=== PATIENT | female | born 1970 | race Caucasian/White ===

== ENCOUNTER 2022-07-31 10:24 | Day surgery (SDC) | payer BC, SELFPAY ==
[2022-07-31 10:49] VITALS: BMI 29.9
[2022-07-31 10:55] VITALS: BP 122/68; PULSE 82; RESP 16; TEMP 36.8; O2SAT 97
--- NOTE | 2022-07-31 11:27 | PC.NURSE ---
attempted two iv insertions with no success. applied ice pack to right hand.
--- NOTE | 2022-07-31 11:53 | P.CONAN_ITS ---
HPI - Anesthesia Eval Consult details Narrative: colonoscopy [facility] Past Medical History Medical History (Updated 07/31/22 @ 10:48 by Shelley Kendall RN) Patella fracture Family History Family history of problems with anesthesia: No Surgical History History of Problems with Anesthesia: No Social History Social History Household Members: None Alcohol intake: current Alcohol intake frequency: holidays/special occasions only Patient Tobacco Use Status: Never used Tobacco Use of substances other than those prescribed or required for medical reasons: No Are you DNR?: No Advance Directives: No Advance Directives Information Provided: Yes Recently lost weight without trying: No Nutrition Risks: No Nutritional Risk Meds Allergies Allergy/AdvReac Type Severity Reaction Status Date / Time No Known Allergies Allergy Verified 07/31/22 10:48 Home Medications Medication Instructions Recorded Confirmed Last Taken Type No Known Home Meds 07/31/22 07/31/22 Unknown History Exam Exam Date and Time: July 31, 2022 1153 Height,Weight and Vital Signs: Height 5 ft 5 in Weight 81.647 kg Last Vital Signs Temp 98.2 F 07/31/22 10:55 Pulse 82 07/31/22 10:55 Resp 16 07/31/22 10:55 BP 122/68 07/31/22 10:55 Pulse Ox 97 07/31/22 10:55 O2 Del Method 07/31/22 10:55 Airway Mallampati Class: II TM Dist: >3cm Neck ROM: Full Loose/Missing/Broken Teeth: No Heart: rrr Lungs: cta Assessment and Plan Final Anesthetic Review Family History of Problems with Anesthesia: No History of Problems with Anesthesia: No NPO: Yes ASA Class: III Final Preanesthetic Review: No Changes in Pt Med Stat, Meds/Allgs Chart Reviewed, Consent Obtained/Reviewed and Anes Risks/Benef Reviewed Patient Risk: Intermediate Procedure Risk: Low Assessment/Block/Sedation in SS: Assess/Block/Sedation-SS Anesthetic Plan Anesthetic Plan: MAC: Disposition: Standard PACU
--- NOTE | 2022-07-31 11:58 | MHC.SHP ---
Pre-Procedural Eval Section A Date of Service: 07/31/22 The patient is an INPATIENT: No The History & Physical has been completed within 30 days and I have reviewed it.: No Section B Chief Complaint: screening Details of Present Illness: Colon cancer screening, occasional postprandial loose stools and abdominal bloating. Relevant Family History (Specify if Yes): No Relevant Social History: None Present Medications: see Short Stay Collaborative assessment Medical History: No relevant PMH History of Previous Operations: No relevant previous surgery Allergies: Allergies Allergy/AdvReac Type Severity Reaction Status Date / Time No Known Allergies Allergy Verified 07/31/22 10:48 Review of Systems Sugical H&P ROS: Negative: Constitution, Cardiovascular, Respiratory and Gastrointestinal Exam Surgical H&P Exam: Normal: Heart, Normal: Lungs, Normal: Extremities and Normal: Abdomen Plan Diagnosis/Plan: Unchanged I have reviewed the history and physical and performed a pertinent physical examination on my patient. No changes have occurred unless specified. Time Spent With Patient Time: Total time managing care of this patient today ____ minutes.
--- NOTE | 2022-07-31 12:05 | P.OP_ITS ---
Operative Note Operative Note Date of Service: 07/31/22 Narrative: Pre-op diagnosis: Colon cancer screening, postprandial bloating and diarrhea Post-op diagnosis:?other (Diverticulosis, hemorrhoids) Surgeon: Luciano Tamayo MD Anesthesia:?MAC COLONOSCOPY TILL CECUM WITH BIOPSIES Consent: Indications for the procedure and potential complications of bleeding, perforation, reaction to medications and missed diagnosis were discussed with the patient and informed consent was obtained. Instrument: Olympus PCF H 190 L variable stiffness pediatric colonoscope Monitoring: Vital signs and clinical assessment, intermittent blood pressure monitoring, continuous EKG monitoring, Pulse oximetry and Carbon Dioxide monitoring were done throughout the procedure. Colon withdrawl time was 12 minutes. Procedure: The patient was placed in the left lateral decubitis position and pre-procedure medications were administered. After a digital rectal examination of the ano-rectum, the video colonoscope was inserted into the rectum and advanced through the colon to the cecum. The colonoscope was slowly withdrawn in a retrograde panoramic fashion and the colon mucosa was carefully examined including a retroflexed view of the rectum. Findings and interventions are described below. Procedure Difficulty: Without difficulty Findings: Terminal Ileum: Distal 6 cms was examined and appeared normal Cecum: Normal Ascending Colon: Normal Transverse Colon: Normal Descending Colon: Normal Sigmoid Colon: Moderate diverticulosis Rectum: Normal Ano-rectum: Small internal hemorrhoids Colon preparation: Excellent Impression and Post Procedure Diagnosis: Colonoscopy Findings: No polyps were detected. Random biopsies were obtained from right and left colon to check for microscopic colitis Moderate diverticulosis seen in the sigmoid colon Small hemorrhoids on retroflexed exam. Plan: Await pathology results Patient has an appointment on 08/14/22 in the GI Clinic with Nathaly Galaviz FNP- BC. Repeat Colonoscopy in 10 years if colon biopsies are normal. Above findings were reviewed with the patient and diverticulosis handouts was given in the discharge area
--- NOTE | 2022-07-31 12:05 | PM.OP ---
Brief Operative Note Date of Service: 07/31/22 Pre-op diagnosis: Colon cancer screening, postprandial bloating and diarrhea Post-op diagnosis: other (Diverticulosis, hemorrhoids) Procedure: COLONOSCOPY TILL CECUM WITH BIOPSIES Surgeon: Luciano Tamayo MD Anesthesia: MAC Was an [employer] Team Member used for this Procedure?: Yes [employer] Team Member: Sakina Marion Estimated blood loss (mL): 0 Pathology: other (A. random right colon bxs, R/O microscopic colitis B. random left colon bxs, R/O microscopic colitis) Condition: stable Disposition: PACU
[2022-07-31 12:47] VITALS: BP 87/36; PULSE 79; RESP 20; TEMP 36.6; O2SAT 98
[2022-07-31 13:02] VITALS: BP 104/60; PULSE 65; RESP 16; TEMP 36.2; O2SAT 97
== END 2022-07-31 14:03 | disposition home or self-care (01) ==
PROVIDERS: PCP Internal Medicine; Visit Provider Internal Medicine Gastroenterology
PROC: 0DJD8ZZ Inspection of Lower Intestinal Tract, Via Natural or Artificial Opening Endoscopic (ICD-10-PCS; CPT 45378; principal; 2022-07-31 11:30)
DX: Z12.11 Encounter for screening for malignant neoplasm of colon (principal); K57.30 Diverticulosis of large intestine without perforation or abscess without bleeding; K64.8 Other hemorrhoids; R14.0 Abdominal distension (gaseous)
CPT/HCPCS: 45380; 88305

== ENCOUNTER → 2022-08-14 15:41 | Outpatient (BNVA) | payer BC, SELFPAY | PROVIDERS: PCP Internal Medicine; Visit Provider Nurse Practitioner Family | DX: Z13.89 Encounter for screening for other disorder (principal) ==

== ENCOUNTER 2023-06-21 10:31 | Outpatient (REF) | payer OTHER, SELFPAY ==
[2023-06-21 12:14] LABS: Anion Gap 13 (12-20); Blood Urea Nitrogen 16 mg/dL (9-16); Calcium 9.3 mg/dL (8.4-10.2); Carbon Dioxide 27 mmol/L (22-29); Chloride 106 mmol/L (96-108); Cholesterol 199 mg/dL (<200); Estimated Glomerular Filt Rate > 60; Glucose Random 93 mg/dL (60-115); HDL Cholesterol 51 mg/dL (>40); LDL Cholesterol Calculated 125 mg/dL (<100); Potassium 4.1 mmol/L (3.3-5.1); Sodium 142 mmol/L (135-145); Triglycerides 116 mg/dL (<150)
== END 2023-06-21 10:32 | disposition home or self-care (01) ==
LOC: HO.HHCL 10:31
PROVIDERS: Visit Provider Internal Medicine
DX: Z00.00 Encounter for general adult medical examination without abnormal findings (principal); Z13.220 Encounter for screening for lipoid disorders
CPT/HCPCS: 36415; 80048; 80061

== ENCOUNTER 2024-09-05 13:25 | Outpatient (AMB) | payer MEDICAID, SELFPAY ==
--- NOTE | 2024-09-05 13:26 | MHC.OFFVIS ---
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 Patient reports right middle catching and locking every once and awhile especially after doing house work. Expresses right middle finger is sore and tender especially when attempting to squeeze or grasp. She is unable to pull finger in as much as other ones and when she extends the middle finger it bounces back. Denies numbness and tingling. 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 Patient reports right middle catching and locking every once and awhile especially after doing house work. Expresses right middle finger is sore and tender especially when attempting to squeeze or grasp. She is unable to pull finger in as much as other ones and when she extends the middle finger it bounces back. Denies numbness and tingling. PFSH Medical History Patella fracture Surgical History Hx of colonoscopy Social History (Updated 09/05/24 @ 13:31 by MARLYN King) Household Members: None Alcohol intake: current Alcohol intake frequency: holidays/special occasions only Patient Tobacco Use Status: Never used Tobacco Current occupational status: unemployed Review of Systems Const All systems reviewed & are unremarkable except as noted in HPI and below Physical Exam Vital Signs: BMI result Body Mass Index 29.1 Extrem Other: Patient is alert, oriented, and in no acute distress. Neuro: Normal sensation of the tips of all digits of the right hand at this time Vascular: Cap refill brisk Pain: Tenderness to palpation noted of the A1 vidal of the right middle finger Patient reports diffuse tenderness to palpation of the right middle finger No pain with range of motion ROM: Patient is able to make a closed fist and extend all digits of the right hand fully No visible or palpable locking or catching in the office today Skin: No lacerations or abrasions. General: No ecchymosis, erythema, or evidence of infection. Psych: Appears grossly normal Affect normal Attitude cooperative Office Procedures AMB Tendon Injection Tendon Injection [id number] Tendon Sheath Injection All charges added?: Procedure code (CPT) selection complete Assessment & Plan Assessment & Plan (1) Trigger finger, right middle finger: Code(s): M65.331 - Trigger finger, right middle finger Category: Medical Plan 1. Trigger finger, right middle finger Patient is educated about this condition Patient is educated about the treatment options available Patient would like to proceed with steroid injection The risks and benefits of a steroid injection including but not limited to risk of damage to blood vessels, nerves, tendons, infection, skin bleaching, failure to improve symptoms, increased pain, and possible need for further injections or other intervention were discussed with the patient and the patient wishes to proceed with the steroid injection. Once consent was obtained, I sterilely prepped the area over the A1 vidal of the flexor tendon sheath of the right middle finger. I then injected the flexor tendon sheath with a combination of 1 mL of dexamethasone (4mg/ml), and 1% lidocaine. The patient tolerated the procedure well with no complications. If the patient continues to have locking and catching 4-6 weeks following this injection, they may call to schedule appointment to discuss alternative treatment options Follow-up prn Coding Level of Care Code New Pt Level 3 (23090) Diagnoses Trigger finger, right middle finger M65.331 CPT Codes Tendon Injection - Tendon Injection 1: [id number] Tendon Sheath Injection ([id number])
--- NOTE | 2024-09-05 13:26 | MHC.OFFVIS ---
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 Allergies No Known Allergies Allergy (Verified 08/14/22 15:56) PFSH Medical History Patella fracture Surgical History Hx of colonoscopy Social History Household Members: None Alcohol intake: current Alcohol intake frequency: holidays/special occasions only Patient Tobacco Use Status: Never used Tobacco Coding
[2024-09-05 13:28] VITALS: BMI 29.1
--- OUTSIDE RECORDS SUMMARY | 2024-09-05 15:16 | XMS_ITS | Clinical Summary ---
Author Organization [employer] Address [address] [place] [address] Care Team Providers Care Illuminator Name Role Phone Miryam Gatica MD Primary Care Provide r Allergies No known active allergies Medications econazole nitrate 1 % creamIndication s:Onychomycosis Apply topically Once per day. 30 g 1 5 07/28/19 26 Active clotrimazole-be tamethasone (Lotrisone) creamIndication s:Rash Apply topically 2 times daily for 28 days. 15 g 5 08/26/19 25 Active Problems Problem Noted Date Diagnosed Date Acquired trigger finger 07/30/2024 Onychomycosis 07/28/2024 Rash 07/28/2024 Lumbar sprain 02/15/2024 Assessment & Plan (02/15/2024 12:31 PM EDT): Advised to take Meloxicam daily x 1-2 weeks. Take Tylenol prn pain. Gave her information for lumbar exercises and refer to PT. Plantar fasciitis 02/14/2024 Encounter for preventive care 06/15/2023 Assessment & Plan (07/28/2024 3:38 PM EST): See HPI Assessment & Plan (06/20/2023 11:59 AM EST): See HPI Encounters Date Type Department Care Team Description 09/01/2024 Travel 08/25/2024 3:00 PM EDT Nutrition [facility] [address] [place] [address] Kamlesh VarshaPHYLLIS Overweight 08/25/2024 Travel 08/18/2024 Travel 08/15/2024 Population Health Risk Score [facility] Department [address] [place] [address] [phone] Provider, Population Health Generic 07/30/2024 Telephone [facility] [address] [place] [address] Miryam Gatica MD Questions 07/28/2024 2:45 PM EST Office Visit [facility] [address] [place] [address] Miryam Gatica MD Onychomycosis (Primary Dx); Dietary counseling; Exercise counseling; Overweight; Rash; Encounter for preventive care; Acquired trigger finger 07/28/2024 Travel 07/23/2024 Telephone [facility] [address] [place] [phone] Miryam Gatica MD Chart Prep 07/22/2024 Travel 07/16/2024 Patient Outreach [facility] [address] [place] [address] Miryam Gatica MD Pre-visit Planning ([facility] unable to reach [facility] ) 06/28/2024 Orders Only [facility] [address] [place] [id number] Provider, MD Mao from Last 3 Months Immunizations Name Administration Dates Next Due INFLUENZA VACCINE QUADRIVALE NT RECOMBINANT PRESERVATIVE FREE RIV4 03/24/2020 Influenza injectable quadriv alent IIV4 with preservative 03/19/2019 Influenza injectable quadriv alent preservative free 03/06/2023,02/27/2022,04/11/2021,2019 Pfizer Covid-19 Vaccine 12+ 03/20/2023 Tdap 08/15/2023 Zoster, Recombinant 10/16/2023,08/05/2023 Social History Tobacco Use Types Packs/Day Years Used Date Smoking Tobacco: Never Passive Smoke Exposure: Never Tobacco Cessation:Counseling Given: Not Answered Alcohol Use Standard Drinks/Week Comments Never 0 (1 standard drink = 0.6 oz pur e alcohol) Depression Answer Date Recorded Patient Health Questionnaire-9 Score 0 07/28/2024 Patient Health Questionnaire-9 Score 0 07/28/2024 Last PHQ-9: Questionnaire Data Not on file 0 07/28/2024 Housing Stability Answer Date Recorded What is your housing situation today? I have maurice asif 07/28/[address] you li ve. Do you have problems with any of the following? None of the above 07/28/2024 Food Insecurity Answer Date Recorded Within the past 12 months, y ou worried that your food would run out before you got money to buy more: Never True 07/28/2024 Within the past 12 months,th e food you bought just didn't last and you didn't have enough money to get more: Never True Transportation Answer Date Recorded In the past 12 months, has l ack of transportation kept you from medical appts, meetings, work or from getting things needed for daily living? No 07/28/2024 Utilities Answer Date Recorded In the past 12 months, has t he electric, gas, oil or water company threatened to shut off services in your home? No 07/28/2024 Depression Answer Date Recorded Patient Health Questionnaire-2 Score 0 07/28/2024 Internet Access Answer Date Recorded Internet Access Q1 No 07/28/2024 Internet Access Q2 I do not want or need it 07/06 Comments No Sex and Gender Information Value Date Recorded Sex Assigned at Female 04/03/2022 10:35 AM EDT Legal Sex Female 10:35 AM EDT Gender Identity Female 04/03/2022 10:35 AM EDT Sexual Orientation Straight 04/03/2022 10 :35 AM EDT Last Filed Vital Signs Vital Sign Reading Time Taken Comments Blood Pressure 132/77 07/28/2024 2:50 PM EST Pulse 96 07/28/2024 2:50 PM EST Temperature 35.9 ??C (96.7 ??F) 07/28/2024 2:50 PM ES T Respiratory Rate 14 07/28/2024 2:50 PM EST Oxygen Saturation 96% 07/28/2024 2:50 PM EST Inhaled Oxygen Concentration - - Weight 80.5 kg (177 lb 6.4 oz) 08/26/2024 2:48 P M EDT Height 165.1 cm (5' 5 ) 08/26/2024 2:48 PM EDT Body Mass Index 29.52 08/26/2024 2:48 PM EDT Plan of Treatment Upcoming Encounters Date Type Department Care Team (Late st Contact Info) Description 09/08/2024 3:30 PM EDT Clinical Support [facility] [address] [place], [place] [phone] Varsha [address] [place], [place] [phone] Health Maintenance Due Date Last Done Comments CT Colonography 1970 FIT DNA/Cologuard 1970 FIT 1970 FOBT 1970 HIV Screening 1970 Sigmoidoscopy 1970 Hepatitis C Screening 1988 Hepatitis B Vaccines (1 of 3 - 19+ 3-dose series) 1989 Mammogram 2010 Pneumococcal Vaccine: 50+ Years (1 of 1 - PCV) 2020 COVID-19 Vaccine ( season) 2024 03/20/2023, 03/12/2022, 05/12/2021, Additional history exists Influenza Vaccine (#1) 2024 , 02/27/2022, 04/11/2021, Additional history exists Alcohol/Substance Use Screening 07/28/2025 07/28/2024 Depression Screening 07/28/2025 07/28/2024, 07/28/19 25 SDOH Screening 07/28/2025 07/28/2024 Tobacco Screening 07/28/2025 07/28/2024 Cervical Cancer Screening 12/07/2026 HPV/Cotest 12/07/2026 Pap Smear 12/07/2026 12/07/2021 Colonoscopy 07/31/2032 07/31/2022 Colorectal Cancer Screening 07/31/2032 DTaP/Tdap/Td Vaccines (2 - Td or Tdap) 08/14/2033 08/15/2023 RSV Patients and Patients Aged 60 years or older (1 - 1-dose 75+ series) 2045 Zoster Vaccines Completed 10/16/2023, 08/05/2023 HIB Vaccines Aged Out No longer eligi ble based on patient's age to complete this topic HPV Vaccines Aged Out No longer eligi ble based on patient's age to complete this topic Hepatitis A Vaccines Aged Out No long er eligible based on patient's age to complete this topic IPV Vaccines Aged Out No longer eligi ble based on patient's age to complete this topic Meningococcal Vaccine Aged Out No ishmael zakiya eligible based on patient's age to complete this topic RSV under 20 months Aged Out No longe r eligible based on patient's age to complete this topic Rotavirus Vaccines Aged Out No longer eligible based on patient's age to complete this topic Procedures Procedure Name Priority Date/Time Associated Diagnosis Comments COLONOSCOPY Routine 07/31/2022 PAP/HPV Routine 12/07/2021 6:30 PM EDT from Last 3 Months or Most Recently Relevant to Health Maintenance Results * Colonoscopy (07/31/2022) Colonoscopy Normal Normal Narrative Lora Russell - 07/31/2022 Repeat colonoscopy in 10 years Historical Provider HEALTH MAINTENANCE Final Result * PAP/HPV (12/07/2021 6:30 PM EDT) Historical Provider HEALTH MAINTENANCE Final Result [facility] [address] [place] [phone] from Last 3 Months or Most Recently Relevant to Health Maintenance Insurance [facility] Care Teams Illuminator Relationship Specialty Start Date End Date Miryam Gatica MD [address] [place] [phone] PCP - General Family Medicine 11/21/18
--- OUTSIDE RECORDS SUMMARY | 2024-09-05 15:16 | XMS_ITS | Encounter Summary ---
Author Organization [employer] Address [address] [place] [address] Care Team Providers Care Pipe Bowl Paint Trimmer Name Role Phone Miryam Gatica MD Primary Care Provide r Encounter Details Date Type Department Care Team (Latest Contact Info) Description 09/01/2024 Travel Social History Tobacco Use Types Packs/Day Years Used Date Smoking Tobacco: Never Passive Smoke Exposure: Never Alcohol Use Standard Drinks/Week Comments Never 0 [...] Orientation Straight 04/03/2022 10 :35 AM EDT documented as of this encounter Plan of Treatment Upcoming Encounters Date Type Department Care Team (Late st Contact Info) Description 09/08/2024 3:30 PM EDT Clinical Support [facility] [address] [place] [address] [place] [address] documented as of this encounter Visit Diagnoses Not on filedocumented in this encounter Additional Health Concerns Assessment Noted Time PHQ-9 Depression Total Score: 0 07/28/19 25 2:51 PM EST documented as of this encounter Care Teams Pipe Bowl Paint Trimmer Relationship Specialty Start Date End Date Miryam Gatica MD [address] [place] [address] PCP - General Family Medicine 11/21/18 documented as of this encounter
--- OUTSIDE RECORDS SUMMARY | 2024-09-05 15:16 | XMS_ITS | Continuity of Care Document ---
Author Organization [facility] Address [address] [place] [address]- Care Team Providers Care Canvas Goods Supervisor Name Role Phone Miryam Gatica MD Primary Care Physici an Encounter 08/28/24 - 09/04/24 [facility] [address] [place] [address]- Attending Physician: Miryam Gatica MD Admitting Physician: Miryam Gatica MD Referring Physician: Miryam Gatica MD Encounter Type: OutPatient One Time Allergies, Adverse Reactions, Alerts No Known Allergies Medications Bactrim DS 800 mg-160 mg oral tablet 1, tablet, By Mouth, 2 times a day, # 6 tablet, 0 Refills Start Date: 06/07/07 Stop Date: 06/10/07 Status: Ordered Quantity: 6.0 Unit: tablet Repeat number: 1 Results Radiology Reports * Exam Date Time Procedure Performing Provider Status 08/28/24 11:41 AM MM Digital Mammo Screening Seymour Espinal; Auth (Verified) Notes: (MM Digital Mammo Screening) Reason For Exam: Z12.31 ROUTINE SCREENING RESULT: MM Digital Mammo Screening PROCEDURE: MM Digital Mammo Screening INDICATION: Screening for breast cancer. No known palpable abnormalities. COMPARISON: Prior mammograms dating back to 06/27/2019. TECHNIQUE: Full-field digital CC and MLO 3-D tomosynthesis images of both breasts were acquired. Computer-aided detection (CAD) was utilized in the interpretation of this study. DENSITY: There are scattered areas of fibroglandular density. FINDINGS: No suspicious masses, suspicious microcalcifications, or areas of architectural distortion are seen in either breast to suggest malignancy. IMPRESSION: No mammographic evidence of malignancy. RECOMMENDATION: Annual mammographic screening BI-RADS: 1 (Negative) Lay letter mailed to patient WSN: [id number] Ordering Physician: Miryam Gatica Dictated By: Dana Solorzano MD Dictated Date/Time: 08/28/24 5:23 pm Reviewed By: Dana Solorzano MD Signed By: Dana Solorzano MD Signed Date/Time: 08/28/24 5:23 pm Transcribed By: GEORGETTE Glass Inserter Date/Time: 08/28/24 5:22 pm Birads: Patient Care team information Care Team Personnel Name: Miryam Gatica MD Position: [facility] Outreach Member Role: PCP Address: [address] [place] [address] Telecom: Name: Lora Russell Position: S Outreach Member Role: Lifetime Consulting Physician Care Team Related Persons Name: ADALID VIDES Name: ADALID VIDES Insurance Providers Guarantor name: SHARYN WASSERMAN Health Plan Information #: 1 Payer: [employer] Member Number: [id number] Policy Number: NA Group Number: NA Health Plan Information #: 2 Payer: [employer] Member Number: [id number] Policy Number: NA Group Number: NA
--- OUTSIDE RECORDS SUMMARY | 2024-09-05 15:16 | XMS_ITS | Encounter Summary ---
Author Organization [employer] [facility] Address [address] [place] [address] 7 [place] [address] Care Team Providers Care Junior Technical Writer Name Role Phone Miryam Gatica MD Primary Care Provide r Reason for Visit * Reason Onset Date Comments Appointment Request 05/09/2023 Encounter Details Date Type Department Care Team (Late Contact Info) Description 05/09/2023 Telephone [facility] MEDICINE [address] [place] [phone] Miryam Gatica MD [address] [place] [address] Appointment Request Social History Tobacco Use Types Packs/Day Years Used Date Smoking Tobacco: Never Assessed Comments Unknown Sex and Gender Information Value Date Recorded Sex Assigned at Female 04/03/2022 10:35 AM EDT Legal Sex Female 10:35 AM EDT Gender Identity Female 04/03/2022 10:35 AM EDT Sexual Orientation Straight 04/03/2022 10 :35 AM EDT documented as of this encounter Miscellaneous Notes * Telephone Encounter - Fiorsam Varun Palencia - 05/09/2023 3:10 PM EST Tc from pt requesting a Physical Appt with Provider. Please contact pt at [phone] documented in this encounter Plan of Treatment Upcoming Encounters Date Type Department Care Team (Late Contact Info) Description 09/08/2024 3:30 PM EDT Clinical Support [facility] DIABETES/NUTRITION [address] [place], [place] [phone] Varsha Whitlock, PHYLLIS [address] [place], [place] [phone] documented as of this encounter Visit Diagnoses Not on filedocumented in this encounter Care Teams Junior Technical Writer Relationship Specialty Start Date End Date Miryam Gatica MD [address] [place], [place] [phone] PCP - General Family Medicine 11/21/18 documented as of this encounter
--- OUTSIDE RECORDS SUMMARY | 2024-09-05 15:17 | XMS_ITS | Encounter Summary ---
Author Organization [employer] Address [address] [place] [address] Care Team Providers Care Bell Ringer Name Role Phone Miryam Gatica MD Primary Care Provide r Encounter Details Date Type Department Care Team (Late st Contact Info) Description 06/28/2024 Orders Only [facility] MEDICINE [address] [place] [address] Provider, MD Mao Social History Tobacco Use Types Packs/Day Years Used Date Smoking Tobacco: Never Alcohol Use Standard Drinks/Week Comments Never 0 (1 standard drink = 0.6 oz pur e alcohol) Depression Answer Date Recorded Patient Health Questionnaire-9 Score 0 06/15/2023 Patient Health Questionnaire-9 Score 0 06/15/2023 Last PHQ-9: Questionnaire Data Not on file 0 06/15/2023 Housing Stability Answer Date Recorded What is your housing situation today? I have mauricesheng asif 06/15/[address] you li ve. Do you have problems with any of the following? None of the above 06/15/2023 Food Insecurity Answer Date Recorded Within the past 12 months, y ou worried that your food would run out before you got money to buy more: Never True 06/15/2023 Within the past 12 months,th e food you bought just didn't last and you didn't have enough money to get more: Never True 05/2024 Transportation Answer Date Recorded In the past 12 months, has l ack of transportation kept you from medical appts, meetings, work or from getting things needed for daily living? No 06/15/2023 Utilities Answer Date Recorded In the past 12 months, has t he electric, gas, oil or water [employer] threatened to shut off services in your home? No 06/15/2023 Depression Answer Date Recorded Patient Health Questionnaire-2 Score 0 06/15/2023 Comments No Sex and Gender Information Value [...] Description 09/08/2024 3:30 PM EDT Clinical Support [facility] DIABETES/NUTRITION [address] [place], [place] [phone] Varsha Whitlock RD [address] [place] [address] documented as of this encounter Procedures Procedure Name Priority Date/Time Associated Diagnosis Comments HM PAP/HPV Routine 12/07/2021 6:30 PM EDT documented in this encounter Results * HM PAP/HPV (12/07/2021 6:30 PM EDT) us Historical Provider HEALTH MAINTENANCE Final Result [facility] [address] [place] [address] documented in this encounter Visit Diagnoses Not on filedocumented in this encounter Additional Health Concerns Assessment Noted Time PHQ-9 Depression Total Score: 0 06/15/19 24 2:20 PM EST documented as of this encounter Care Teams Bell Ringer Relationship Specialty Start Date End Date Miryam Gatica MD [address] [place] [address] PCP - General Family Medicine 11/21/18 documented as of this encounter
== END 2024-09-05 14:06 | disposition home or self-care (01) ==
LOC: HO.HOS 13:26
PROVIDERS: PCP Internal Medicine
DX: M65.331 Trigger finger, right middle finger (principal)
CPT/HCPCS: 20550; 99203

== ENCOUNTER → 2024-09-05 13:25 | Outpatient (BNVA) | payer MEDICAID, SELFPAY | PROVIDERS: PCP Internal Medicine | DX: M65.331 Trigger finger, right middle finger (principal) | CPT/HCPCS: 20550; 99212; J1100; J2003 ==

== ENCOUNTER 2025-02-11 15:08 | Outpatient (REF) | payer MEDICAID, SELFPAY ==
--- NOTE | ~2025-02-11 | XR_ITS ---
Exam: Five-view x-ray lumbar spine TECHNIQUE: AP, lateral, lateral spot, and bilateral oblique view x-rays lumbar spine Comparison March 19, 2019 INDICATION:Recurrent low back pain with radiation to the left buttock for many years FINDINGS: There are 5 nonrib-bearing lumbar segments. There is mild levoscoliosis. There is mild superior endplate compression fracture of T12 which has occurred since the 2018 x-ray. L2 demonstrates mild disc space narrowing and subtle retrolisthesis. L2-3 demonstrates mild disc space narrowing and endplate osteophytes. L3-4 demonstrates interval disc space narrowing and facet sclerosis. L4-5 demonstrates mild disc space narrowing and facet sclerosis. L5-S1 demonstrates moderate disc space narrowing with vacuum phenomenon and facet sclerosis. XR/XR lumbar spine 4V min IMPRESSION: T12 demonstrates mild superior endplate compression fracture which is new since 2019. Multilevel degenerative disc disease and facet osteoarthritis is stable to minimally progressed since the prior. Electronically signed by: Kirill Guevara MD 02/11/2025 04:27 PM EDT
--- OUTSIDE RECORDS SUMMARY | 2025-02-11 14:15 | XMS_ITS | Encounter Summary ---
Author Organization [employer] Address [address] [place] [address] 7t [place] [address] Care Team Providers Care Hall Worker Name Role Phone Miryam Gatica MD Primary Care Provide r Reason for Referral * Imaging (Routine) - Pending Review Specialty Diagnoses / Procedures Referred By Contac t Referred To Contact Radiology Diagnoses Compression fracture of T12 vertebra, initial encounter ([facility]) Procedures BD DEXA Axial Luis Dow MD [address] [place] [address] Phone: tel: fax: Referral ID Status Reason Start Date Expiration Date V isits Requested Visits Authorized [id number] Pending Review 02/11/2025 02/11/2026 1 1 * Imaging (Routine) - Pending Review Specialty Diagnoses / Procedures Referred By Contac t Referred To Contact Radiology Diagnoses Acute exacerbation of chronic low back pain Osteoarthritis of spine with radiculopathy, lumbar region Procedures MR Lumbar Spine w/o Contrast Luis Dow MD [address] [place] [address] Phone: tel: fax: Referral ID Status Reason Start Date Expiration Date V isits Requested Visits Authorized [id number] Pending Review 02/11/2025 02/11/2026 1 1 * Imaging (Routine) - Pending Review Specialty Diagnoses / Procedures Referred By Contac t Referred To Contact Radiology Diagnoses Compression fracture of T12 vertebra, initial encounter ([facility]) Procedures MR Thoracic Spine w/o Contrast Luis Dow MD [address] [place] [address] Phone: tel: fax: Referral ID Status Reason Start Date Expiration Date V isits Requested Visits Authorized [id number] Pending Review 02/11/2025 02/11/2026 1 1 Reason for Visit * Reason Comments Back Pain Encounter Details Date Type Department Care Team (Late st Contact Info) Description 02/11/2025 2:15 PM EDT Office Visit [facility] [address] [place], [place] [phone] Luis Dow MD [address] [place] [address] Acute exacerbation of chronic low back pain (Primary Dx); Osteoarthritis of spine with radiculopathy, lumbar region; Radicular pain of lower extremity; Compression fracture of T12 vertebra, initial encounter ([facility]) Social History Tobacco Use Types Packs/Day Years [...] for review and was seen by an assurance specialist. She does not have any history [...] Final result Study Result Narrative & Impression [address] [address] XRay Report Signed Patient: Tamara Pacheco MR#: [id number] : 1970 Acct:[id number] Age/Sex: 54 / F ADM Date: 02/11/25 Loc: HO.HHCX Attending Dr: Luis Dow MD Ordering Physician: Luis Dow MD Date of Service: 02/11/25 Procedure(s): XR lumbar spine 4V min Accession Number(s): [id number] cc: Miryam Gatica MD; Name,Luis SAEZ Reason [...] Kirill Guevara MD 02/11/2025 04:27 PM EDT RP Dictated By: Kirill Guevara MD Signed By: <Electronically signed by Kirill Guevara MD in OV> 02/11/25 1627 Assessment/Plan Diagnoses and all orders for this [...] Compression fracture of T12 vertebra, initial encounter ([facility]) - MR Thoracic Spine w/o Contrast; Future - Basic Metabolic Panel; Future - Vitamin D, 25-Hydroxy, Total, Immunoassay; Future - PTH, Intact Without Calcium; Future - BD DEXA Axial; Future documented in this encounter Plan of Treatment Scheduled Orders Name Type Priority Associated Diagnoses Orde r Schedule MR Thoracic Spine w/o Contrast Imaging Routine Compression fracture of T12 vertebra, initial encounter ([facility]) Expected: 02/11/2025, Expires: 02/11/2026 MR Lumbar Spine w/o Contrast Imaging Routine Acute exacerbation of chronic low back pain Osteoarthritis of spine with radiculopathy, lumbar region Expected: 02/11/2025, Expires: 02/11/2026 Basic Metabolic Panel Lab Routine Compression fracture of T12 vertebra, initial encounter ([facility]) Expected: 02/11/2025 (Approximate), Expires: 02/11/2026 Vitamin D, 25-Hydroxy, Total, Immunoassay Lab Routine Compression fracture of T12 vertebra, initial encounter ([facility]) Expected: 02/11/2025 (Approximate), Expires: 02/11/2026 PTH, Intact Without Calcium Lab Routine Compression fracture of T12 vertebra, initial encounter ([facility]) Expected: 02/11/2025, Expires: 02/11/2026 BD DEXA Axial Imaging Routine Compression fracture of T12 vertebra, initial encounter ([facility] Expected: 02/11/2025, Expires: 02/11/2026 documented as of this encounter Procedures Procedure Name Priority Date/Time Associated Diagnosis Comments XR LUMBAR SPINE COMPLETE 4+ VIEWS Routine 02/11/2025 4:00 PM EDT Acute exacerbation of chronic low back pain Radicular pain of lower extremity documented in this encounter Results * XR Lumbar Spine Complete 4+ Views (02/11/2025 4:00 PM EDT) Anatomical Region Laterality Modality Spine, L-spine Radiographic Na ging 02/11/2025 4:00 PM EDT Narrative 02/11/2025 4:30 PM EDT [address] [address] XRay Report Signed Patient: Tamara Pacheco MR#: [id number] : 1970 Acct:[id number] Age/Sex: 54 / F ADM Date: 02/11/25 Loc: HO.HHCX Attending Dr: Luis Dow MD Ordering Physician: Name,Luis SAEZ Date of Service: 02/11/25 Procedure(s): XR lumbar spine 4V min Accession Number(s): [id number] cc: Miryam Gatica MD; Name,Luis SAEZ Reason [...] 02/11/25 1627 DD/ 1600 TD/TT: 02/11/25 1602 Post Anesthesia Care Unit Nurse: Procedure Note Donotuseinterpreter, Image - 02/11/[address] [address] XRay Report Signed Patient: Tata Pacheco#: [id number] : 1970Acct:[id number] Age/Sex: 54 / FADM Date: 02/11/25 Loc: HO.HHCX Attending Dr: Luis Dow MD Ordering Physician: Luis Dow MD Date of Service: 02/11/25 Procedure(s): XR lumbar spine 4V min Accession Number(s): [id number] cc: Miryam Gatica MD; Name,Luis SAEZ Reason [...] 02/11/25 1627 DD/ 1600 TD/TT: 02/11/25 1602 Post Anesthesia Care Unit Nurse: Luis Dow MD IMG XR PROCEDURES Final Result documented in this encounter Visit Diagnoses Diagnosis Acute exacerbation of chronic low back pain- Primary Osteoarthritis of spine with radiculopathy, lumbar region Radicular pain of lower extremity Compression fracture of T12 vertebra, initial encounter ([facility]) documented in this encounter Additional Health Concerns Assessment Noted Time PHQ-9 Depression Total Score: 0 07/28/19 25 2:51 PM EST documented as of this encounter Care Teams Hall Worker Relationship Specialty Start Date End Date Miryam Gatica MD [address] [place] [address] PCP - General Family Medicine 11/21/18 documented as of this encounter
--- OUTSIDE RECORDS SUMMARY | 2025-02-11 18:15 | XMS_ITS | Encounter Summary ---
Author Organization [employer] Address [address] [facility] 7t [place] [address] Care Team Providers Care News Videotape Editor Name Role Phone Miryam Gatica MD Primary Care Provide r Reason for Visit * Reason Onset Date Comments Nurse Triage 02/09/2025 Encounter Details Date Type Department Care Team ([facility] st Contact Info) Description 02/09/2025 Telephone [facility] [address] [place], [place] [phone] Miryam Gatica MD [address] [place] [address] Nurse Triage Social History Tobacco Use Types Packs/Day Years [...] encounter Miscellaneous Notes * Telephone Encounter - Laquita Anne LPN - 02/09/2025 3:43 PM EDT Triage call returned to patient who reports low back pain and left hip pain. No accident or injury.No recent event that triggered pain. Pain worsened laying on left side. Pain not relieved at all byMotrin 800 mg. Advised to try Tylenol. Has no numbness of weakness in left leg no urinary complaints or incontinence. Has tried stretches and nothing is helping. No previous surgical back history. Dis position reviewed and patient in agreement with plan. ASK/ Sunday02/11/25 at 215pm. Reviewed with patient home care recommendations and reasons to call back. Pt verbalized understanding and agrees. Multiple (2) protocols were used on this call. Disposition for Call: See in Office or Video Visit within 3 Days Protocol Used: Back Pain (Adult) Protocol-Based Disposition: See in Office or Video Visit within 3 Days Video visit offer not recorded Positive Triage Questions: * Moderate back pain (e.g., interferes with normal activities) and present > 3 days * Patient wants to be seen * All higher-acuity triage questions were negative Care Advice Discussed: * Sleep * Continue Activity * Pain Medicines * Reasons To Call Back - Severe pain not better after taking pain medicines - You become worse Protocol Used: Hip Pain (Adult) Protocol-Based Disposition: See in Office or Video Visit within 3 Days Positive Triage Question: * Moderate pain (e.g., interferes with normal activities, limping) and present > 3 days * All higher-acuity triage questions were negative Care Advice Discussed: * Pain Medicines * Reasons To Call Back - You become worse * Telephone Encounter - Pierre Rogers - 02/09/2025 3:37 PM EDT Symptom: worsening Back Pain - Not From Injury Outcome: Schedule an appointment to be seen within 3 days Reason: Caller denied all higher acuity questions Duration 1x week documented in this encounter Plan of Treatment Not on file documented as of this encounter Visit Diagnoses Not on filedocumented in this encounter Additional Health Concerns Assessment Noted Time PHQ-9 Depression Total Score: 0 07/28/19 25 2:51 PM EST documented as of this encounter Care Teams News Videotape Editor Relationship Specialty Start Date End Date Miryam Gatica MD [address] [place] [address] PCP - General Family Medicine 11/21/18 documented as of this encounter
--- OUTSIDE RECORDS SUMMARY | 2025-02-11 18:15 | XMS_ITS | Encounter Summary ---
Author Organization [employer] Address [address] [facility] 7t [place] [address] Care Team Providers Care Aluminum Sheet Cutter Name Role Phone Miryam Gatica MD Primary Care Provide r Encounter Details Date Type Department Care Team (Late st Contact Info) Description 02/11/2025 Results Follow-Up [facility] [address] [place], [place] [phone] Name, MD Luis [address] [place] [address] XR Lumbar Spine Complete 4+ Views Social History Tobacco Use Types Packs/Day Years [...] as of this encounter Plan of Treatment Not on file documented as of this encounter Visit Diagnoses Not on filedocumented in this encounter Additional Health Concerns Assessment Noted Time PHQ-9 Depression Total Score: 0 07/28/19 25 2:51 PM EST documented as of this encounter Care Teams Aluminum Sheet Cutter Relationship Specialty Start Date End Date Miryam Gatica MD [address] [place] [address] PCP - General Family Medicine 11/21/18 documented as of this encounter
--- OUTSIDE RECORDS SUMMARY | 2025-02-11 18:15 | XMS_ITS | Encounter Summary ---
Author Organization [employer] Address [address] [facility] [address] 7t [place] [address] Care Team Providers Care Flying Ii Instructor Name Role Phone Miryam Gatica MD Primary Care Provide r Encounter Details Date Type Department Care Team (Late st Contact Info) Description 06/28/2024 Orders Only [facility] [address] [place] [address] Provider, MD Mao Social History Tobacco Use [...] your housing situation today? I have maurice sing 06/15/[address] you li [...] on file documented as of this encounter Procedures Procedure Name Priority Date/Time Associated Diagnosis Comments HM PAP/HPV Routine 12/07/2021 6:30 PM EDT documented in this encounter Results * HM PAP/HPV (12/07/2021 6:30 PM EDT) us Historical Provider HEALTH MAINTENANCE Final Result [facility] [address] [place] [address] documented in this encounter Visit Diagnoses Not on filedocumented in this encounter Additional Health Concerns Assessment Noted Time PHQ-9 Depression Total Score: 0 06/15/19 24 2:20 PM EST documented as of this encounter Care Teams Flying Ii Instructor Relationship Specialty Start Date End Date Miryam Gatica MD [address] [place] [address] PCP - General Family Medicine 11/21/18 documented as of this encounter
--- OUTSIDE RECORDS SUMMARY | 2025-02-11 18:15 | XMS_ITS | Encounter Summary ---
Author Organization [employer] Address [address] [place] [address] 7 [place] [address] Care Team Providers Care Dairy Store Manager Name Role Phone Miryam Gatica MD Primary Care Provide r Reason for Visit * Reason Onset Date Comments Appointment Request 05/09/2023 Encounter Details Date Type Department Care Team ([facility] st Contact Info) Description 05/09/2023 Telephone [facility] [address] [place], [place] [phone] Miryam Gatica MD [address] [place] [address] Appointment Request Social History Tobacco Use Types [...] encounter Miscellaneous Notes * Telephone Encounter - Imelda Palencia - 05/09/2023 3:10 PM EST Tc from pt requesting a Physical Appt with Provider. Please contact pt at [phone] documented in this encounter Plan of Treatment Not on file documented as of this encounter Visit Diagnoses Not on filedocumented in this encounter Care Teams Dairy Store Manager Relationship Specialty Start Date End Date Miryam Gatica MD [address] [place] [address] PCP - General Family Medicine 11/21/18 documented as of this encounter
--- OUTSIDE RECORDS SUMMARY | 2025-02-11 18:15 | XMS_ITS | Encounter Summary ---
Author Organization [employer] Address [address] [facility] 7t [place] [address] Care Team Providers Care Software Engineering Manager Name Role Phone Miryam Gatica MD Primary Care Provide r Encounter Details Date Type Department Care Team (Latest Contact Info) Description 02/11/2025 Travel Social History Tobacco Use Types Packs/Day [...] documented as of this encounter Care Teams Software Engineering Manager Relationship Specialty Start Date End Date Miryam Gatica MD [address] [place] [address] PCP - General Family Medicine 11/21/18 documented as of this encounter
--- OUTSIDE RECORDS SUMMARY | 2025-02-11 18:15 | XMS_ITS | Clinical Summary ---
Author Organization [employer] Address [address] [facility] 7t [place] [address] Care Team Providers Care Printed Circuit Board Drafter Name Role Phone Miryam Gatica MD Primary Care Provide r Allergies No known active allergies Medications econazole nitrate 1 % creamIndications: Onychomycosis Apply topically Once per day. 30 g 1 5 07/28/19 26 Active naproxen (Naprosyn) 500 MG tabletIndications :Acute exacerbation of chronic low back pain,Radicular pain of lower extremity Take 1 tablet (500 mg) by mouth with breakfast and with evening meal. 40 tablet 5 03/13/20 25 Active Active Problems Problem Noted Date Diagnosed Date [...] Encounters Date Type Department Care Team Description 02/11/2025 2:15 PM EDT Office Visit [facility] [address] [place] [address] [place] [address] Luis oDw MD Acute exacerbation of chronic low back pain (Primary Dx); Osteoarthritis of spine with radiculopathy, lumbar region; Radicular pain of lower extremity; Compression fracture of T12 vertebra, initial encounter ([facility]) 02/11/2025 Results Follow-Up [facility] [address] [place] [address] Luis Dow MD XR Lumbar Spine Complete 4+ Views 02/11/2025 Travel 02/09/2025 Telephone [facility] [address] [place] [address] Miryam Gatica MD Nurse Triage from Last 3 Months Immunizations Immunization Administration Dates Next Due INFLUENZA VACCINE QUADRIVALE [...] kg (179 lb 3.2 oz) 02/11/2025 2:30 PM EDT Height 165.1 cm (5' 5 ) 02/11/2025 2:30 PM EDT Body Mass Index 29.82 02/11/2025 2:30 PM EDT Plan of Treatment Health Maintenance Due Date Last Done Comments CT Colonography 1970 FIT DNA/Cologuard 1970 FIT 1970 FOBT 1970 HIV Screening 1970 Sigmoidoscopy 1970 Hepatitis C Screening 1988 Hepatitis B Vaccines (1 of 3 - 19+ 3-dose series) 1989 Mammogram 2010 Pneumococcal Vaccine: 50+ Years (1 of 1 - PCV) 2020 COVID-19 Vaccine ( season) 2025 03/20/2023, 03/12/2022, 05/12/2021, Additional history exists Influenza Vaccine (#1) 2025 , 02/27/2022, 04/11/2021, Additional history exists Disability Screening 07/22/2025 07/22/2024 Alcohol/Substance Use Screening 07/28/2025 07/28/2024 Depression Screening 07/28/2025 07/28/2024, 07/28/19 SDOH Screening 07/28/2025 07/28/2024 Tobacco Screening 02/11/2026 02/11/2025 Cervical Cancer Screening 12/07/2026 HPV/Cotest 12/07/2026 Pap [...] patient's age to complete this topic Meningococcal B Vaccine Aged Out No l onger eligible based on patient's age to complete [...] back pain Radicular pain of lower extremity COLONOSCOPY Routine 07/31/2022 PAP/HPV Routine 12/07/2021 6:30 PM EDT from Last 3 Months or Most Recently Relevant to Health Maintenance Results * XR Lumbar Spine Complete 4+ Views (02/11/2025 4:00 PM EDT) Anatomical Region Laterality Modality Spine, L-spine Radiographic Na ging 02/11/2025 4:00 PM EDT Narrative 02/11/2025 4:30 PM EDT [address] [address] XRay Report Signed Patient: Tamara Pacheco MR#: [id number] : 1970 Acct:[id number] Age/Sex: 54 / F ADM Date: 02/11/25 Loc: HO.HHCX Attending Dr: Luis Dow MD Ordering Physician: Luis Dow MD Date of Service: 02/11/25 Procedure(s): XR lumbar spine 4V min Accession Number(s): [id number] cc: Miryam Gatica MD; Name,Luis SAEZ Reason [...] 02/11/25 1627 DD/ 1600 TD/TT: 02/11/25 1602 Metal Hardener: Procedure Note Tejaster, Image - 02/11/[address] [address] XRay Report Signed Patient: Tata Pacheco#: [id number] : 1970Acct:[id number] Age/Sex: 54 / FADM Date: 02/11/25 Loc: HO.HHCX Attending Dr: Luis Dow MD Ordering Physician: Lius Dow MD Date of Service: 02/11/25 Procedure(s): XR lumbar spine 4V min Accession Number(s): [id number] cc: Miryam Gatica MD; Name,Luis SAEZ Reason [...] 02/11/25 1627 DD/ 1600 TD/TT: 02/11/25 1602 Metal Hardener: Luismadelaine Dow MD IMG XR PROCEDURES Final Result * Hm Colonoscopy (07/31/2022) Colonoscopy Normal Normal Narrative Lora Russell - 07/31/2022 Repeat colonoscopy in 10 years Historical Provider HEALTH MAINTENANCE Final Result * HM PAP/HPV (12/07/2021 6:30 PM EDT) Historical Provider HEALTH MAINTENANCE Final Result Performing Organization Address City/State/[facility] Co de Phone Number [facility] [address] [place] [address] from Last 3 Months or Most Recently Relevant to Health Maintenance Insurance [facility] C3 Care Teams Printed Circuit Board Drafter Relationship Specialty Start Date End Date Miryam Gatica MD [address] [place] [address] PCP - General Family Medicine 11/21/18
== END 2025-02-11 15:09 | disposition home or self-care (01) ==
LOC: HO.HHCX 15:08
PROVIDERS: PCP Internal Medicine; Visit Provider Internal Medicine Geriatric Medicine
DX: M54.32 Sciatica, left side (principal); M54.50 Low back pain, unspecified; G89.29 Other chronic pain
CPT/HCPCS: 72110

== ENCOUNTER → 2025-02-11 15:31 | Outpatient (BNV) | payer MEDICAID, SELFPAY | PROVIDERS: PCP Internal Medicine; Visit Provider Radiology Diagnostic Radiology | DX: M51.360 Other intervertebral disc degeneration, lumbar region with discogenic back pain only (principal) | CPT/HCPCS: 72110 ==

== ENCOUNTER 2025-02-16 10:00 | Outpatient (REF) | payer MEDICAID, SELFPAY ==
--- OUTSIDE RECORDS SUMMARY | 2025-02-11 14:15 | XMS_ITS | Encounter Summary ---
Author Organization [employer] Address [address] [place] [address] 7[address] [place] [address] Care Team Providers Care Maintainer Plant Name Role Phone Miryam Gatica MD Primary Care Provide r Reason for Referral * Imaging (Routine) - Authorized Specialty Diagnoses / Procedures Referred By Contac t Referred To Contact Radiology Diagnoses Compression fracture of T12 vertebra, initial encounter ([facility]) Procedures BD DEXA Axial NameLuis MD [address] [place] [address] Phone: tel: fax: [address] Phone: tel: fax: Referral ID Status Reason Start Date Expiration Date V isits Requested Visits Authorized [id number] Authorized 02/11/2025 02/11/2026 1 1 * Imaging (Routine) - Authorized Specialty Diagnoses / Procedures Referred By Contac t Referred To Contact Radiology Diagnoses Acute exacerbation of chronic low back pain Osteoarthritis of spine with radiculopathy, lumbar region Procedures MR Lumbar Spine w/o Contrast NameLuis MD [address] [place] [address] Phone: tel: fax: [address] Phone: tel: fax: Referral ID Status Reason Start Date Expiration Date V isits Requested Visits Authorized [id number] Authorized 02/11/2025 02/11/2026 1 1 * Imaging (Routine) - Authorized Specialty Diagnoses / Procedures Referred By Contac t Referred To Contact Radiology Diagnoses Compression fracture of T12 vertebra, initial encounter ([facility]) Procedures MR Thoracic Spine w/o Contrast Luis Dow MD [address] [place] [address] Phone: tel: fax: [address] Phone: tel: fax: Referral ID Status Reason Start Date Expiration Date V isits Requested Visits Authorized [id number] Authorized 02/11/2025 02/11/2026 1 1 Reason for Visit * Reason Comments Back Pain Encounter Details Date Type Department Care Team (Late st Contact Info) Description 02/11/2025 2:15 PM EDT Office Visit [facility] [address] [place] [address] Luis Dow MD [address] [place] [address] Acute exacerbation of chronic low back pain (Primary Dx); Osteoarthritis of spine with radiculopathy, lumbar region; Radicular pain of lower extremity; Compression fracture of T12 vertebra, initial encounter ([facility]) Social History Tobacco Use Types Packs/Day Years [...] AM EDT documented as of this encounter Last Filed Vital Signs Vital Sign Reading Time Taken Comments Blood Pressure 110/62 02/11/2025 2:30 PM EDT Pulse 75 02/11/2025 2:30 PM EDT Temperature 36.6 C (97.9 F) 02/11/2025 2:30 PM EDT Respiratory Rate 14 02/11/2025 2:30 PM EDT Oxygen Saturation 97% 02/11/2025 2:30 PM EDT Inhaled Oxygen Concentration - - Weight 81.3 kg (179 lb 3.2 oz) 02/11/2025 2:30 P M EDT Height 165.1 cm (5' 5 ) 02/11/2025 2:30 PM EDT Body Mass Index 29.82 02/11/2025 2:30 PM EDT documented in this encounter Progress Notes * Luis Dow MD - 02/11/2025 2:15 PM EDT Subjective Patient ID: Tamara Pacheco is a 54 y.o. female who presents for Back Pain. Patient comes complaining of a couple of months of low back pain with radiation to the left buttock. Pain is constant, often severe, feels like a stabbing sensation, worse with weightbearing activities, not relieved by Tylenol. She explains to me that she is having years with this type of pain and it comes and goes. She has tried physical therapy without success, several years ago she had an MRI of the lumbar spine that is not available for review and was seen by an hydrotechnical specialist. She does not have any history of malignancy, no weight loss, no fevers or chills, no associated leg weakness. Today after I spoke with the patient I received the report x-ray of the lumbar spine that showed mild T12 compression fracture. She does not have any family history of osteoporosis, she is not a smoker, she never used prednisone. Review of Systems Constitutional: Negative for chills and fever. HENT: Negative for sore throat. Respiratory: Negative for cough, shortness of breath and wheezing. Cardiovascular: Negative for chest pain, palpitations and leg swelling. Gastrointestinal: Negative for abdominal pain. Musculoskeletal: Positive for back pain. Neurological: Negative for weakness. Objective Vitals: 02/11/25 1430 BP: 110/62 BP Location: Left arm Patient Position: Sitting BP Cuff Size: Adult Pulse: 75 Resp: 14 Temp: 97.9 ??F (36.6 ??C) TempSrc: Temporal SpO2: 97% Weight: 179 lb 3.2 oz (81.3 kg) Height: 5' 5 (1.651 m) Physical Exam Constitutional: Appearance: Normal appearance. Cardiovascular: Rate and Rhythm: Normal rate and regular rhythm. Heart sounds: No murmur heard. No gallop. Pulmonary: Effort: Pulmonary effort is normal. No respiratory distress. Breath sounds: Normal breath sounds. No wheezing. Musculoskeletal: Lumbar back: Spasms and tenderness present. Right lower leg: No edema. Left lower leg: No edema. Neurological: General: No focal deficit present. Mental Status: She is alert. Motor: No weakness. XR Lumbar Spine Complete 4+ Views Status: Final result Study Result Narrative & Impression [address] [address] XRay Report Signed Patient: Tamara Pacheco MR#: [id number] : 1970 Acct:[id number] Age/Sex: 54 / F ADM Date: 02/11/25 Loc: HO.HHCX Attending Dr: Luis Dow MD Ordering Physician: Name,Luis SAEZ Date of Service: 02/11/25 Procedure(s): XR lumbar spine 4V min Accession Number(s): [id number] cc: Miryam Gatica MD; Name,Luis SAEZ Reason for Exam: Recurrent low back pain with radiation to the left buttock for many years Exam: Five-view x-ray lumbar spine TECHNIQUE: AP, lateral, lateral spot, and bilateral oblique view x-rays lumbar spine Comparison March 19, 2019 INDICATION:Recurrent low back pain with radiation to the left buttock for many years FINDINGS: There are 5 nonrib-bearing lumbar segments. There is mild levoscoliosis. There is mild superior endplate compression fracture of T12 which has occurred since the 2018 x-ray. L2 demonstrates mild disc space narrowing and subtle retrolisthesis. L2-3 demonstrates mild disc space narrowing and endplate osteophytes. L3-4 demonstrates interval disc space narrowing and facet sclerosis. L4-5 demonstrates mild disc space narrowing and facet sclerosis. L5-S1 demonstrates moderate disc space narrowing with vacuum phenomenon and facet sclerosis. XR/XR lumbar spine 4V min IMPRESSION: T12 demonstrates mild superior endplate compression fracture which is new since 2019. Multilevel degenerative disc disease and facet osteoarthritis is stable to minimally progressed since the prior. Electronically signed by: Kirill Guevara MD 02/11/2025 04:27 PM EDT Dictated By: Kirill Guevara MD Signed By: <Electronically signed by Kirill Guevara MD in OV> 02/11/25 4602 Assessment/Plan Diagnoses and all orders for this visit: Acute exacerbation of chronic low back pain Comments: I prescribed naproxen for pain, I recommended evaluation with blood work for BMP, vitamin D, PTH levels, bone density test to rule out osteoporosis, evaluation with MRI of the thoracic and lumbar spine. Further recommendation based on the results and response to the medication. Orders: - naproxen (Naprosyn) 500 MG tablet; Take 1 tablet (500 mg) by mouth with breakfast and with evening meal. - XR Lumbar Spine Complete 4+ Views; Future - MR Lumbar Spine w/o Contrast; Future Osteoarthritis of spine with radiculopathy, lumbar region - MR Lumbar Spine w/o Contrast; Future Radicular pain of lower extremity - naproxen (Naprosyn) 500 MG tablet; Take 1 tablet (500 mg) by mouth with breakfast and with evening meal. - XR Lumbar Spine Complete 4+ Views; Future Compression fracture of T12 vertebra, initial encounter ([facility]) - MR Thoracic Spine w/o Contrast; Future - Basic Metabolic Panel; Future - Vitamin D, 25-Hydroxy, Total, Immunoassay; Future - PTH, Intact Without Calcium; Future - BD DEXA Axial; Future documented in this encounter Plan of Treatment Scheduled Orders Name Type Priority Associated Diagnoses Orde r Schedule MR Thoracic Spine w/o Contrast Imaging Routine Compression fracture of T12 vertebra, initial encounter ([facility]) Expected: 02/11/2025, Expires: 02/11/2026 MR Lumbar Spine w/o Contrast Imaging Routine Acute exacerbation of chronic low back pain Osteoarthritis of spine with radiculopathy, lumbar region Expected: 02/11/2025, Expires: 02/11/2026 BD DEXA Axial Imaging Routine Compression fracture of T12 vertebra, initial encounter ([facility]) Expected: 02/11/2025, Expires: 02/11/2026 documented as of this encounter Procedures Procedure Name Priority Date/Time Associated Diagnosis Comments VITAMIN D,25-OH,TOTAL,IA Routine 02/16/2025 10:09 AM EDT Compression fracture of T12 vertebra, initial encounter ([facility]) PTH, INTACT WITHOUT CALCIUM Routine 02/16/2025 10:09 AM EDT Compression fracture of T12 vertebra, initial encounter ([facility]) BASIC METABOLIC PANEL Routine 02/16/2025 10:09 AM EDT Compression fracture of T12 vertebra, initial encounter ([facility]) XR LUMBAR SPINE COMPLETE 4+ VIEWS Routine 02/11/2025 4:00 PM EDT Acute exacerbation of chronic low back pain Radicular pain of lower extremity documented in this encounter Results * PTH, Intact Without Calcium (02/16/2025 10:09 AM EDT) Parathyroid Hormone, Intact 43.4 8.7 - 77.1 pg/mL [facility] Blood Venous blood specimen / Unknown 02/16/2025 10:09 AM EDT 02/16/2025 11:12 AM EDT us Luis Name MD LAB BLOOD ORDERABLES Final Resul t [facility] [address] [place] [phone] * Vitamin D, 25-Hydroxy, Total, Immunoassay (02/16/2025 10:09 AM EDT) Vitamin D 25-OH Total 62.8 >30 ng/mL [facility] Comment: Health Based Reference Values*< 20 ng/mL Gtxwczprz80-90 ng/mL Insufficient> 30 ng/mL Sufficient*Madhuri BARBA. N Engl J Med. 2007;357:266-280There is no well-established upper level of normal vitamin Dlevels. Some laboratories use 50 ng/mL as an upper limit ofnormal. However, toxicity is patient-dependent and may occurat any level. Careful correlation with the patient'spresentation is necessary and, if there is concern forvitamin D toxicity, treatment should be consideredirrespective of the serum level.Care must be taken in interpreting Vitamin D results fromdifferent laboratories and methodologies. Published datademonstrated that results from patients undergoinghemodialysis may show a negative bias when tested withvarious automated 25-OH vitamin D assays when compared toLC-MS/MS.When testing samples from patients whose predominant form ofVitamin D is Vitamin D2, such as patients receiving VitaminD2 supplementation, results that are subtherapeutic shouldbe confirmed with another method such as LC-MS/MS. Blood Venous blood specimen / Unknown 02/16/2025 10:09 AM EDT 02/16/2025 11:12 AM EDT us Luis Dow MD LAB BLOOD ORDERABLES Final Resul t Performing Organization Address [facility] de Phone Number [facility] [address] [place] [address] [phone] * Basic Metabolic Panel (02/16/2025 10:09 AM EDT) Sodium 141 135 - 145 mmol/L [facility] Potassium 4.2 3.3 - 5.1 mmol/L [facility] Chloride 105 96 - 108 mmol/L [facility] Carbon Dioxide 28 22 - 29 mmol/L [facility] Anion Gap 12 12 - 20 [facility] Urea Nitrogen (BUN) 12 9 - 16 mg/dL [facility] Creatinine, Serum 0.76 0.5 - 1.4 mg/dL [facility] Estimated Glomerular Filt Rate >60 [facility] Comment:Chronic Kidney Disea se: Estimated GFR < 60 mL/min/1.68p9Aokysu Kidney Disease: Estimated GFR < 15 mL/min/1.73m2 Glucose 104 60 - 115 mg/dL [facility] Calcium 9.2 8.4 - 10.2 mg/dL [facility] Blood Venous blood specimen / Unknown 02/16/2025 10:09 AM EDT 02/16/2025 11:12 AM EDT us Luis Dow MD LAB BLOOD ORDERABLES Final Resul t Performing Organization Address [facility] Co de Phone Number [facility] [address] [place] [address] [phone] * XR Lumbar Spine Complete 4+ Views (02/11/2025 4:00 PM EDT) Anatomical Region Laterality Modality Spine, L-spine Radiographic Na ging 02/11/2025 4:00 PM EDT Narrative 02/11/2025 4:30 PM EDT [place] [address] XRay Report Signed Patient: Tamara Pacheco MR#: [id number] : 1970 Acct:[id number] Age/Sex: 54 / F ADM Date: 02/11/25 Loc: HO.HHCX Attending Dr: Luis Dow MD Ordering Physician: Name,Luis SAEZ Date of Service: 02/11/25 Procedure(s): XR lumbar spine 4V min Accession Number(s): [id number] cc: Miryam Gatica MD; Name,Luis SAEZ Reason for Exam: Recurrent low back pain with radiation to the left buttock for many years Exam: Five-view x-ray lumbar spine TECHNIQUE: AP, lateral, lateral spot, and bilateral oblique view x-rays lumbar spine Comparison March 19, 2019 INDICATION:Recurrent low back pain with radiation to the left buttock for many years FINDINGS: There are 5 nonrib-bearing lumbar segments. There is mild levoscoliosis. There is mild superior endplate compression fracture of T12 which has occurred since the 2018 x-ray. L2 demonstrates mild disc space narrowing and subtle retrolisthesis. L2-3 demonstrates mild disc space narrowing and endplate osteophytes. L3-4 demonstrates interval disc space narrowing and facet sclerosis. L4-5 demonstrates mild disc space narrowing and facet sclerosis. L5-S1 demonstrates moderate disc space narrowing with vacuum phenomenon and facet sclerosis. XR/XR lumbar spine 4V min IMPRESSION: T12 demonstrates mild superior endplate compression fracture which is new since 2019. Multilevel degenerative disc disease and facet osteoarthritis is stable to minimally progressed since the prior. Electronically signed by: Kirill Guevara MD 02/11/2025 04:27 PM EDT Dictated By: Kirill Guevara MD Signed By: <Electronically signed by Kirill Guevara MD in OV> 02/11/25 1627 DD/ 1600 TD/TT: 02/11/25 1602 Welding Inspector: Procedure Note Donotuseinterpreter, Image - 02/11/[address] [address] XRay Report Signed Patient: Tata Pacheco#: [id number] : 1970Acct:[id number] Age/Sex: 54 / FADM Date: 02/11/25 Loc: HO.HHCX Attending Dr: Luis Dow MD Ordering Physician: Luis Dow MD Date of Service: 02/11/25 Procedure(s): XR lumbar spine 4V min Accession Number(s): [id number] cc: Miryam Gatica MD; Name,Luis SAEZ Reason for Exam: Recurrent low back pain with radiation to the leftbuttock for many years Exam: Five-view x-ray lumbar spine TECHNIQUE: AP, lateral, lateral spot, and bilateral oblique view x-rays lumbar spine Comparison March 19, 2019 INDICATION:Recurrent low back pain with radiation to the left buttock for many years FINDINGS: There are 5 nonrib-bearing lumbar segments. There is mild levoscoliosis. There is mild superior endplate compression fracture of T12 which has occurred since the 2018 x-ray. L2 demonstrates mild disc space narrowing and subtle retrolisthesis. L2-3 demonstrates mild disc space narrowing and endplate osteophytes. L3-4 demonstrates interval disc space narrowing and facet sclerosis. L4-5 demonstrates mild disc space narrowing and facet sclerosis. L5-S1 demonstrates moderate disc space narrowing with vacuum phenomenon and facet sclerosis. XR/XR lumbar spine 4V min IMPRESSION: T12 demonstrates mild superior endplate compression fracture which is new since 2019. Multilevel degenerative disc disease and facet osteoarthritis is stable to minimally progressed since the prior. Electronically signed by: Kirill Guevara MD 02/11/2025 04:27 PM EDT Dictated By: Kirill Guevara MD Signed By: <Electronically signed by Kirill Guevara MD in OV> 02/11/25 1627 DD/ 1600 TD/TT: 02/11/25 1602 Welding Inspector: Luis Dow MD IMG XR PROCEDURES Final Result documented in this encounter Visit Diagnoses Diagnosis Acute exacerbation of chronic low back pain- Primary Osteoarthritis of spine with radiculopathy, lumbar region Radicular pain of lower extremity Compression fracture of T12 vertebra, initial encounter ([facility]) documented in this encounter Additional Health Concerns Assessment Noted Time PHQ-9 Depression Total Score: 0 07/28/19 25 2:51 PM EST documented as of this encounter Care Teams Maintainer Plant Relationship Specialty Start Date End Date Miryam Gatica MD [address] [place] [address] PCP - General Family Medicine 11/21/18 documented as of this encounter
--- OUTSIDE RECORDS SUMMARY | 2025-02-16 10:15 | XMS_ITS | Encounter Summary ---
Author Organization [employer] Address [address] [facility] 7t [place] [address] Care Team Providers Care Pocket Flap Creasing Machine Operator Name Role Phone Miryam Gatica MD Primary Care Provide r Reason for Visit * Reason Comments Acupuncture Encounter Details Date Type Department Care Team ([facility] st Contact Info) Description 02/16/2025 10:15 AM EDT Office Visit [facility] [address] [place], [place] [phone] Catalina Coffman MD [address] [place] [address] Acute exacerbation of chronic low back pain (Primary Dx) Social History Tobacco Use Types Packs/Day Years [...] AM EDT documented as of this encounter Progress Notes * Catalina Coffman MD - 02/16/2025 10:15 AM EDT Subjective Patient ID: Tamara Pacheco is a 54 y.o. female who presents for Acupuncture. Tamara is here for acupuncture treatment #1. She is interested in addressing low back pain. She recently discovered that she has a mild compression fracture at T12. She knows of the clinic from her previous participation years ago. Only had one treatment. Review of Systems Musculoskeletal: Positive for back pain. Objective Physical Exam Constitutional: Appearance: Normal appearance. Skin: General: Skin is warm and dry. Neurological: Mental Status: She is alert and oriented to person, place, and time. Assessment/Plan Diagnoses and all orders for this visit: Acute exacerbation of chronic low back pain Written consent obtained for ear acupuncture. Ears prepped with alcohol pad. Five ear points needled bilaterally: Sympathetic, Garcia Men, Kidney, Liver and Lung. Treatment duration: 30 minutes. Good hemostasis. Patient tolerated well. Follow up weekly for repeat acupuncture treatments as desired. documented in this encounter Plan of Treatment Not on file documented as of this encounter Visit Diagnoses Diagnosis Acute exacerbation of chronic low back pain- Primary documented in this encounter Additional Health Concerns Assessment Noted Time PHQ-9 Depression Total Score: 0 02/24/20 25 2:51 PM EST documented as of this encounter Care Teams Pocket Flap Creasing Machine Operator Relationship Specialty Start Date End Date Miryam Gatica MD [address] [place] [address] PCP - General Family Medicine 11/21/18 documented as of this encounter
[2025-02-16 11:55] LABS: Anion Gap 12 (12-20); Blood Urea Nitrogen 12 mg/dL (9-16); Calcium 9.2 mg/dL (8.4-10.2); Carbon Dioxide 28 mmol/L (22-29); Chloride 105 mmol/L (96-108); Estimated Glomerular Filt Rate > 60; Potassium 4.2 mmol/L (3.3-5.1); Sodium 141 mmol/L (135-145)
[2025-02-16 12:08] LABS: Parathyroid Hormone Intact 43.4 pg/mL (8.7-77.1)
--- OUTSIDE RECORDS SUMMARY | 2025-02-16 12:29 | XMS_ITS | Encounter Summary ---
Author Organization [employer] Address [address] [place] [address] 7 [place] [address] Care Team Providers Care Tire And Tube Repairer Name Role Phone Miryam Gatica MD Primary Care Provide r Reason for Visit * Reason Onset Date Comments Appointment Request 05/09/2023 Encounter Details Date Type Department Care Team ([facility] st Contact Info) Description 05/09/2023 Telephone [facility] [address] [place], [place] [phone] Miryam Gatica MD [address] [place] [address] Appointment Request Social History Tobacco Use Types [...] Appt with Provider. Please contact pt at [phone] documented in this encounter Plan of Treatment Not on file documented as of this encounter Visit Diagnoses Not on filedocumented in this encounter Care Teams Tire And Tube Repairer Relationship Specialty Start Date End Date Miryam Gatica MD [address] [place] [address] PCP - General Family Medicine 11/21/18 documented as of this encounter
--- OUTSIDE RECORDS SUMMARY | 2025-02-16 12:30 | XMS_ITS | Encounter Summary ---
Author Organization [employer] Address [address] [facility] 7t [place] [address] Care Team Providers Care Careers Counsellor Name Role Phone Miryam Gatica MD Primary [...] documented as of this encounter Care Teams Careers Counsellor Relationship Specialty Start Date End Date Miryam Gatica MD [address] [place] [address] PCP - General Family Medicine 11/21/18 documented as of this encounter
--- OUTSIDE RECORDS SUMMARY | 2025-02-16 12:30 | XMS_ITS | Clinical Summary ---
Author Organization [employer] Address [address] [facility] 7t [place] [address] Care Team Providers Care Wastewater Plant Operator Name Role Phone Miryam Gatica MD [...] breakfast and with evening meal. 40 tablet 03/13/20 25 Active Active Problems Problem Noted [...] Encounters Date Type Department Care Team Description 02/16/2025 10:15 AM EDT Office Visit [address] [address] Catalina Coffman MD Acute exacerbation of chronic low back pain (Primary Dx) 02/16/[address] [address] iMryam Gatica MD telephone call 02/16/2025 Travel 02/11/2025 2:15 PM EDT Office Visit [address] [address] Luis Dow MD Acute exacerbation of chronic low back pain (Primary Dx); Osteoarthritis of spine with radiculopathy, lumbar region; Radicular pain of lower extremity; Compression fracture of T12 vertebra, initial encounter ([facility]) 02/11/2025 Results Follow-Up [address] [address] Luis Dow MD XR Lumbar Spine Complete 4+ Views 02/11/2025 Travel 02/09/[address] [address] Miryam Gatica MD Nurse Triage from Last [...] 25 SDOH Screening 07/28/2025 07/28/2024 Tobacco Screening 02/11/2026 [...] Procedure Name Priority Date/Time Associated Diagnosis Comments PTH, INTACT WITHOUT CALCIUM Routine 02/16/2025 10:09 AM EDT Compression fracture of T12 vertebra, initial encounter ([facility]) VITAMIN D,25-OH,TOTAL,IA Routine 02/16/2025 10:09 AM EDT Compression fracture of T12 vertebra, initial encounter ([facility]) BASIC METABOLIC PANEL Routine 02/16/2025 10:09 AM EDT Compression fracture of T12 vertebra, initial encounter ([facility]) XR LUMBAR SPINE COMPLETE 4+ VIEWS Routine 02/11/2025 4:00 PM EDT Acute exacerbation of chronic low back pain Radicular pain of lower extremity HM COLONOSCOPY Routine 07/31/2022 PAP/HPV Routine 12/07/2021 6:30 PM EDT from Last 3 Months or Most Recently Relevant to Health Maintenance Results * Vitamin D, 25-Hydroxy, Total, Immunoassay (02/16/2025 10:09 AM EDT) Vitamin D 25-OH Total 62.8 >30 ng/mL [facility] Comment: Health Based Reference Values*< 20 ng/mL Xjcvjhzqy43-73 ng/mL Insufficient> 30 ng/mL Sufficient*Madhuri BARBA. N [...] ORDERABLES Final Resul t Performing Organization Address [facility] Co de Phone Number [facility] [address] [place] [phone] * PTH, Intact Without Calcium (02/16/2025 10:09 AM EDT) Parathyroid Hormone, Intact 43.4 8.7 - 77.1 pg/mL [facility] Blood Venous blood specimen / Unknown 02/16/2025 10:09 AM EDT 02/16/2025 11:12 AM EDT us Luis Dow MD LAB BLOOD ORDERABLES Final Resul t Performing Organization Address [facility] de Phone Number [facility] [address] [place] [phone] * Basic Metabolic Panel (02/16/2025 10:09 AM EDT) Sodium 141 135 - 145 mmol/L [facility] Potassium 4.2 3.3 - 5.1 mmol/L [facility] Chloride 105 96 - 108 mmol/L [facility] Carbon Dioxide 28 22 - 29 mmol/L [facility] Anion Gap 12 12 - 20 [facility] Urea Nitrogen (BUN) 12 9 - 16 mg/dL [facility] Creatinine, Serum 0.76 0.5 - 1.4 mg/dL [facility] Estimated Glomerular Filt Rate >60 [facility] Comment:Chronic Kidney Disea se: Estimated GFR < 60 mL/min/1.86d8Niltzd Kidney Disease: Estimated GFR < 15 mL/min/1.73m2 Glucose 104 60 - 115 mg/dL [facility] Calcium 9.2 8.4 - 10.2 mg/dL [facility] Blood Venous blood specimen / Unknown 02/16/2025 10:09 AM EDT 02/16/2025 11:12 AM EDT Luis Dow MD LAB BLOOD ORDERABLES Final Resul t Performing Organization Address City/State/[facility] Co de Phone Number [facility] [address] [place] [phone] * XR Lumbar Spine Complete 4+ Views (02/11/2025 4:00 PM EDT) Anatomical Region Laterality Modality Spine, L-spine Radiographic Na ging 02/11/2025 4:00 PM EDT Narrative 02/11/2025 4:30 PM EDT [address] [address] XRay Report Signed Patient: Tamara Pacheco MR#: [id number] : 1970 Acct:[id number] Age/Sex: 54 / F ADM Date: 02/11/25 Loc: .HHCX Attending Dr: Luis Dow MD Ordering Physician: Luis Dow MD Date of Service: 02/11/25 Procedure(s): XR lumbar spine 4V min Accession Number(s): [id number] cc: Miryam Gatica MD; Name,Luis SAEZ Reason [...] 02/11/25 1627 DD/ 1600 TD/TT: 02/11/25 1602 Marine Drafter: Procedure Note Donotuseinterpreter, Image - 02/11/2025 [place] [address] XRay Report Signed Patient: Tata Pacheco#: [id number] : 1970Acct:[id number] Age/Sex: 54 / FADM Date: 02/11/25 Loc: HO.HHCX Attending Dr: Luis Dow MD Ordering Physician: Name,Luis SAEZ Date of Service: 02/11/25 Procedure(s): XR lumbar spine 4V min Accession Number(s): [id number] cc: Miryam Gatica MD; Name,Luis SAEZ Reason [...] 02/11/25 1627 DD/ 1600 TD/TT: 02/11/25 1602 Marine Drafter: Luismadelaine Dow MD IMG XR PROCEDURES Final Result * Hm Colonoscopy (07/31/2022) Colonoscopy Normal Normal Narrative Lora Russell - 07/31/2022 Repeat colonoscopy in 10 years Historical Provider HEALTH MAINTENANCE Final Result * PAP/HPV (12/07/2021 6:30 PM EDT) Historical Provider HEALTH MAINTENANCE Final Result [facility] [address] [place] [address] from Last 3 Months or Most Recently Relevant to Health Maintenance Insurance [facility] C3 Care Teams Wastewater Plant Operator Relationship Specialty Start Date End Date Miryam Gatica MD [address] [place] [phone] PCP - General Family Medicine 11/21/18
--- OUTSIDE RECORDS SUMMARY | 2025-02-16 12:30 | XMS_ITS | Encounter Summary ---
Author Organization [employer] Address [address] [facility] 7t [place] [address] Care Team Providers Care Pipefitter Welder Name Role Phone Miryam Gatica MD Primary Care Provide r Reason for Visit * Reason Onset Date Comments telephone call 02/16/2025 Encounter Details Date Type Department Care Team ([facility] st Contact Info) Description 02/16/2025 Telephone [facility] MEDICINE [address] [place], [place] [phone] Miryam Gatica MD [address] [place] [address] telephone call Social History Tobacco Use Types Packs/Day Years [...] encounter Miscellaneous Notes * Telephone Encounter - Karen Bolanos - 02/16/2025 11:36 AM EDT Pt walked in stating in her last appt she had she got diagnosed with something but wanted to speak to the nurses regarding it and speak about her medications as well. Best contact number is [phone] documented in this encounter Plan of Treatment Not on file documented as of this encounter Visit Diagnoses Not on filedocumented in this encounter Additional Health Concerns Assessment Noted Time PHQ-9 Depression Total Score: 0 07/28/19 25 2:51 PM EST documented as of this encounter Care Teams Pipefitter Welder Relationship Specialty Start Date End Date Miryam Gatica MD [address] [place] [address] PCP - General Family Medicine 11/21/18 documented as of this encounter
--- OUTSIDE RECORDS SUMMARY | 2025-02-16 12:30 | XMS_ITS | Encounter Summary ---
Author Organization [employer] Address 75 [facility] 7t [place] [address] Care Team Providers Care Associate Director Qa Name Role Phone Miryam Gatica MD Primary Care Provide r Encounter Details Date Type Department Care Team (Late st Contact Info) Description 02/11/2025 Results Follow-Up [facility] MEDICINE [address] [place], [place] [phone] Name, MD Luis [address] [place] [address] XR Lumbar Spine Complete 4+ Views Social [...] documented as of this encounter Care Teams Associate Director Qa Relationship Specialty Start Date End Date Miryam Gatica MD [address] [place] [address] PCP - General Family Medicine 11/21/18 documented as of this encounter
--- OUTSIDE RECORDS SUMMARY | 2025-02-16 12:30 | XMS_ITS | Encounter Summary ---
Author Organization [employer] Address [address] [facility] [address] 7[address] [place] [address] Care Team Providers Care Straw Hat Presser Name Role Phone Miryam Gatica MD Primary Care Provide r Encounter Details Date Type Department Care Team (Late st Contact Info) Description 06/28/2024 Orders Only [facility] MEDICINE [address] [place] [address] Provider, MD Mao Social History Tobacco Use [...] HEALTH MAINTENANCE Final Result [facility] [address] [place] [address] documented in this encounter Visit Diagnoses Not on filedocumented in this encounter Additional Health Concerns Assessment Noted Time PHQ-9 Depression Total Score: 0 06/15/19 24 2:20 PM EST documented as of this encounter Care Teams Straw Hat Presser Relationship Specialty Start Date End Date Miryam Gatica MD [address] [place] [address] PCP - General Family Medicine 11/21/18 documented as of this encounter
--- OUTSIDE RECORDS SUMMARY | 2025-02-16 12:30 | XMS_ITS | Encounter Summary ---
Author Organization [employer] Address [address] [facility] 7t [place] [address] Care Team Providers Care Retail Security Professional Name Role Phone Miryam Gatica MD Primary Care Provide r Encounter Details Date Type Department Care Team (Latest Contact Info) Description 02/16/2025 Travel Social History Tobacco Use Types Packs/Day [...] documented as of this encounter Care Teams Retail Security Professional Relationship Specialty Start Date End Date Miryam Gatica MD [address] [place] [address] PCP - General Family Medicine 11/21/18 documented as of this encounter
== END 2025-02-16 10:01 | disposition home or self-care (01) ==
LOC: HO.HHCL 10:00
PROVIDERS: PCP Internal Medicine; Visit Provider Internal Medicine Geriatric Medicine
DX: S22.080A Wedge compression fracture of T11-T12 vertebra, initial encounter for closed fracture (principal)
CPT/HCPCS: 36415; 80048; 82306; 83970

== ENCOUNTER → 2025-02-23 07:17 | Outpatient (BNV) | payer MEDICAID, SELFPAY | PROVIDERS: PCP Internal Medicine; Visit Provider Radiology Diagnostic Radiology | DX: M47.816 Spondylosis without myelopathy or radiculopathy, lumbar region (principal); M48.07 Spinal stenosis, lumbosacral region; M51.370 Other intervertebral disc degeneration, lumbosacral region with discogenic back pain only | CPT/HCPCS: 72148 ==

== ENCOUNTER 2025-02-23 07:22 | Outpatient (REF) | payer MEDICAID, SELFPAY ==
--- NOTE | ~2025-02-23 | MR_ITS ---
EXAMINATION: MR LUMBAR SPINE WITHOUT CONTRAST CLINICAL INFORMATION: Years of low back pain with radiation to left buttock. COMPARISON: No prior available. Radiographs of the lumbar spine 02/11/2025. TECHNIQUE: Multiplanar multisequence MR imaging of the lumbar spine was done without IV contrast. Examination was performed on a 1.5 Elvia Siemens magnet, utilizing standard sequences. FINDINGS: CORONAL ALIGNMENT: -There is a mild levoconvex scoliosis, apex at L3. SAGITTAL ALIGNMENT: -There is a normal lordosis. There is a 2 mm degenerative retrolisthesis of L1 on L2. -There is a 2 mm degenerative anterolisthesis of L4 on L5. LUMBOSACRAL JUNCTION: -Normal. There are 5 eko-asw-adjgfxi lumbar-type vertebral bodies. VERTEBRAL BODIES/BONE MARROW: -There is no compression deformity, or suspicious bone marrow lesion, or gross bone marrow edema identified. DISCS: -There is diffuse loss of disc signal, with loss of disc height predominantly at L5-S1. SPINAL CANAL: -No abnormal developmental findings. CONUS MEDULLARIS: -Terminates at L1. Morphology and signal is normal. INTRADURAL NERVE ROOTS: - Within normal limits. Axial Disc Space Images: T12-L1: No significant disc pathology. The right facet is mildly hypotrophic. No central canal or neural foraminal narrowing. L1-L2: No significant disc pathology. Mild degenerative facet changes. No central canal or neural foraminal narrowing. L2-L3: No significant disc pathology. Mild degenerative facet changes bilaterally. No central canal or neural foraminal narrowing. L3-L4: No significant disc pathology. Moderate hypertrophic degenerative facet changes bilaterally with mild posterior ligamentous infolding/thickening. There is no central canal narrowing. There is mild right greater than left neural foraminal narrowing. L4-L5: There is a minimal degenerative anterolisthesis. There is mild disc osteophytic bulging in the right neural foramen. There are moderate to severe hypertrophic degenerative facet changes bilaterally, with posterior ligamentous infolding/thickening. There is minimal central canal narrowing. There is no subarticular recess narrowing. There is mild right greater than left neural foraminal narrowing. L5-S1: There is left foraminal disc osteophytic bulging. There are moderate left greater than right hypertrophic degenerative facet changes. There is no central canal or subarticular recess stenosis. There is moderate left neural foraminal narrowing with contact of the exiting left L5 root, but no definite impingement. There is mild right neural foraminal narrowing. IMAGED SI JOINTS: -Mild to moderate degenerative arthrosis. PARAVERTEBRAL AND INCLUDED EXTRASPINAL SOFT TISSUES: -There is a small cyst in the left kidney. There is a small cyst in the right hepatic lobe. The aorta is normal in caliber.. MR/MR lumbar spine wo con IMPRESSION: 1. Mild to moderate lumbar spondylosis as described. There is no high-grade central canal narrowing, subarticular recess narrowing, or neural foraminal narrowing. 2. Degenerative facet changes are present mainly spanning L3-S1. There is moderate left neural foraminal narrowing at L5-S1. See above for details. Electronically signed by: Pacheco Adams MD 02/23/2025 09:12 AM EDT
--- OUTSIDE RECORDS SUMMARY | 2025-02-23 07:25 | XMS_ITS | Encounter Summary ---
Author Organization [employer] Address [address] [facility] 7t [place] [address] Care Team Providers Care Infant Toddler Lead Teacher Name Role Phone Miryam Gatica MD Primary Care Provide r Encounter Details Date Type Department Care Team (Late st Contact Info) Description 06/28/2024 Orders Only [facility] MEDICINE [address] [place] [address] Provider, MD Mao Social History Tobacco Use [...] us Historical Provider HEALTH MAINTENANCE Final Result [facility] [address] [place] [address] documented in this encounter Visit Diagnoses Not on filedocumented in this encounter Additional Health Concerns Assessment Noted Time PHQ-9 Depression Total Score: 0 06/15/19 24 2:20 PM EST documented as of this encounter Care Teams Infant Toddler Lead Teacher Relationship Specialty Start Date End Date Miryam Gatica MD [address] [place] [address] PCP - General Family Medicine 11/21/18 documented as of this encounter
--- OUTSIDE RECORDS SUMMARY | 2025-02-23 07:25 | XMS_ITS | Clinical Summary ---
Author Organization [employer] Address [address] [facility] 7t [place] [address] Care Team Providers Care University Partnership Rep Name Role Phone Miryam Gatica MD Primary [...] Description 02/16/2025 10:15 AM EDT Office Visit [address] [address] Catalina Coffman MD Acute exacerbation of chronic low back pain (Primary Dx) 02/16/[address] [address] Miryam Gatica MD telephone call 02/16/2025 Travel 02/11/2025 2:15 PM EDT Office Visit [address] [address] Luis Dow MD Acute exacerbation of chronic low back pain (Primary Dx); Osteoarthritis of spine with radiculopathy, lumbar region; Radicular pain of lower extremity; Compression fracture of T12 vertebra, initial encounter ([facility]) 02/11/2025 Results Follow-Up [address] [address] Luis Dow MD XR Lumbar Spine Complete 4+ Views 02/11/2025 Travel 02/09/[address] [address] Miryam Gatica MD Nurse Triage from Last [...] Compression fracture of T12 vertebra, initial encounter ([facility]) VITAMIN D,25-OH,TOTAL,IA Routine 02/16/2025 10:09 AM EDT Compression fracture of T12 vertebra, initial encounter ([facility]) BASIC METABOLIC PANEL Routine 02/16/2025 10:09 AM EDT Compression fracture of T12 vertebra, initial encounter ([facility]) XR LUMBAR SPINE COMPLETE 4+ VIEWS Routine 02/11/2025 4:00 PM EDT Acute exacerbation of chronic low back pain Radicular pain of lower extremity HM COLONOSCOPY Routine 07/31/2022 PAP/HPV Routine 12/07/2021 6:30 PM EDT from Last 3 Months or Most Recently Relevant to Health Maintenance Results * Vitamin D, 25-Hydroxy, Total, Immunoassay (02/16/2025 10:09 AM EDT) Vitamin D 25-OH Total 62.8 >30 ng/mL [facility] Comment: Health Based Reference Values*< 20 ng/mL Wevyptkoy34-71 ng/mL Insufficient> 30 ng/mL Sufficient*Madhuri BARBA. N [...] ORDERABLES Final Resul t Performing Organization Address [facility] Co de Phone Number [facility] [address] [place] [phone] * PTH, Intact Without Calcium (02/16/2025 10:09 AM EDT) Parathyroid Hormone, Intact 43.4 8.7 - 77.1 pg/mL [facility] Blood Venous blood specimen / Unknown 02/16/2025 10:09 AM EDT 02/16/2025 11:12 AM EDT us Luis Dow MD LAB BLOOD ORDERABLES Final Resul t Performing Organization Address [facility] de Phone Number [facility] [address] [place] [phone] * Basic Metabolic Panel (02/16/2025 10:09 AM EDT) Sodium 141 135 - 145 mmol/L [facility] Potassium 4.2 3.3 - 5.1 mmol/L [facility] Chloride 105 96 - 108 mmol/L [facility] Carbon Dioxide 28 22 - 29 mmol/L [facility] Anion Gap 12 12 - 20 [facility] Urea Nitrogen (BUN) 12 9 - 16 mg/dL [facility] Creatinine, Serum 0.76 0.5 - 1.4 mg/dL [facility] Estimated Glomerular Filt Rate >60 [facility] Comment:Chronic Kidney Disea se: Estimated GFR < 60 mL/min/1.88y1Qnvyyi Kidney Disease: Estimated GFR < 15 mL/min/1.73m2 Glucose 104 60 - 115 mg/dL [facility] Calcium 9.2 8.4 - 10.2 mg/dL [facility] Blood Venous blood specimen / Unknown 02/16/2025 10:09 AM EDT 02/16/2025 11:12 AM EDT Luis Dow MD LAB BLOOD ORDERABLES Final Resul t Performing Organization Address City/State/[facility] Co de Phone Number [facility] [address] [place] [phone] * XR Lumbar Spine Complete 4+ Views (02/11/2025 4:00 PM EDT) Anatomical Region Laterality Modality Spine, L-spine Radiographic Na ging 02/11/2025 4:00 PM EDT Narrative 02/11/2025 4:30 PM EDT [address] [address] XRay Report Signed Patient: Tamara Pacheco MR#: [id number] : 1970 Acct:[id number] Age/Sex: 54 / F ADM Date: 02/11/25 Loc: .HHCX Attending Dr: Luis Dow MD Ordering Physician: Luis Dow MD Date of Service: 02/11/25 Procedure(s): XR lumbar spine 4V min Accession Number(s): [id number] cc: Miryam Gatica MD; Name,Luis SAEZ Reason [...] 02/11/25 1627 DD/ 1600 TD/TT: 02/11/25 1602 Tobacco Packing Machine Operator: Procedure Note Donotuseinterpreter, Image - 02/11/2025 [place] [address] XRay Report Signed Patient: Tata Pacheco#: [id number] : 1970Acct:[id number] Age/Sex: 54 / FADM Date: 02/11/25 Loc: HO.HHCX Attending Dr: Luis Dow MD Ordering Physician: Name,Luis SAEZ Date of Service: 02/11/25 Procedure(s): XR lumbar spine 4V min Accession Number(s): [id number] cc: Miryam Gatica MD; Name,Luis SAEZ Reason [...] 02/11/25 1627 DD/ 1600 TD/TT: 02/11/25 1602 Tobacco Packing Machine Operator: Luismadelaine Dow MD IMG XR PROCEDURES Final Result * Hm Colonoscopy (07/31/2022) Colonoscopy Normal Normal Narrative Lora Russell - 07/31/2022 Repeat colonoscopy in 10 years Historical Provider HEALTH MAINTENANCE Final Result * PAP/HPV (12/07/2021 6:30 PM EDT) Historical Provider HEALTH MAINTENANCE Final Result [facility] [address] [place] [address] from Last 3 Months or Most Recently Relevant to Health Maintenance Insurance [facility] C3 Care Teams University Partnership Rep Relationship Specialty Start Date End Date Miryam Gatica MD [address] [place] [phone] PCP - General Family Medicine 11/21/18
--- OUTSIDE RECORDS SUMMARY | 2025-02-23 07:25 | XMS_ITS | Encounter Summary ---
Author Organization [employer] Address [address] [place] [address] 7 [place] [address] Care Team Providers Care Irish Moss Operator Name Role Phone Miryam Gatica MD Primary Care Provide r Reason for Visit * Reason Onset Date Comments Appointment Request 05/09/2023 Encounter Details Date Type Department Care Team ([facility] st Contact Info) Description 05/09/2023 Telephone [facility] MEDICINE [address] [place], [place] [phone] Miryam Gatica MD [address] [place] [address] Appointment Request Social History Tobacco Use Types [...] Appt with Provider. Please contact pt at [phone] documented in this encounter Plan of Treatment Not on file documented as of this encounter Visit Diagnoses Not on filedocumented in this encounter Care Teams Irish Moss Operator Relationship Specialty Start Date End Date Miryam Gatica MD [address] [place] [address] PCP - General Family Medicine 11/21/18 documented as of this encounter
--- OUTSIDE RECORDS SUMMARY | 2025-02-23 07:25 | XMS_ITS | Encounter Summary ---
Author Organization [employer] Address [address] [facility] 7t [place] [address] Care Team Providers Care Freedom Of Information Officer Name Role Phone Miryam Gatica MD Primary Care Provide r Encounter Details Date Type Department Care Team (Late st Contact Info) Description 02/11/2025 Results Follow-Up [facility] MEDICINE [address] [place], [place] [phone] Name, MD Luis [address] [place] [address] XR Lumbar Spine Complete 4+ Views Social [...] documented as of this encounter Care Teams Freedom Of Information Officer Relationship Specialty Start Date End Date Miryam Gatica MD [address] [place] [address] PCP - General Family Medicine 11/21/18 documented as of this encounter
--- OUTSIDE RECORDS SUMMARY | 2025-02-23 07:25 | XMS_ITS | Encounter Summary ---
Author Organization [employer] Address [address] [facility] 7t [place] [address] Care Team Providers Care Electrode Cleaning Machine Operator Name Role Phone Miryam Gatica MD Primary Care Provide r Reason for Visit * Reason Onset Date Comments telephone call 02/16/2025 Encounter Details Date Type Department Care Team ([facility] st Contact Info) Description 02/16/2025 Telephone [facility] MEDICINE [address] [place], [place] [phone] Miryam Gatica MD [address] [place] [address] telephone call Social History Tobacco Use Types [...] encounter Miscellaneous Notes * Telephone Encounter - Alla Clifford RN - 02/19/2025 4:22 PM EDT Call returned to pt. No answer, v/m left to return call to Blue team nurses. * Telephone Encounter - Pierre Rogers - 02/19/2025 2:26 PM EDT Pt returning call * Telephone Encounter - Alla Clifford RN - 02/17/2025 3:46 PM EDT Call returned to pt. No answer, v/m left to return call to Blue team nurses. * Telephone Encounter - Karen Bolanos - 02/16/2025 11:36 AM EDT Pt walked in stating in her last appt she had she got diagnosed with something but wanted to speak to the nurses regarding it and speak about her medications as well. Best contact number is [phone] documented in this encounter Plan of Treatment Not on file documented as of this encounter Visit Diagnoses Not on filedocumented in this encounter Additional Health Concerns Assessment Noted Time PHQ-9 Depression Total Score: 0 07/28/19 25 2:51 PM EST documented as of this encounter Care Teams Electrode Cleaning Machine Operator Relationship Specialty Start Date End Date Miryam Gatica MD [address] [place] [phone] PCP - General Family Medicine 11/21/18 documented as of this encounter
== END 2025-02-23 07:23 | disposition home or self-care (01) ==
LOC: HO.MRI 07:22
PROVIDERS: PCP Internal Medicine; Visit Provider Internal Medicine Geriatric Medicine
DX: M47.26 Other spondylosis with radiculopathy, lumbar region (principal); G89.29 Other chronic pain
CPT/HCPCS: 72148

== ENCOUNTER 2025-03-27 09:45 | Outpatient (REF) | payer MEDICAID, SELFPAY ==
--- OUTSIDE RECORDS SUMMARY | 2025-03-24 14:15 | XMS_ITS | Encounter Summary ---
Author Organization [employer] Address [address] [place] [address] Care Team Providers Care Track Moving Machine Operator Name Role Phone Miryam Gatica MD Primary Care Provide r Encounter Details Date Type Department Care Team (Late st Contact Info) Description 03/24/2025 2:15 PM EDT Office Visit [facility] [address] [place], [place] [phone] Sharon Cam MD [address] [place], [place] [phone] Lumbar sprain, sequela (Primary Dx) Social History Tobacco Use Types [...] as of this encounter Progress Notes * Sharon Cam MD - 03/24/2025 2:15 PM EDT Subjective Patient ID: Tamara Pacheco is a 54 y.o. female who presents for Acupuncture. Tamara is here for acupuncture treatment #4 for low back pain r/t a mild compression fracture at T12.Back pain is improving. Review of Systems Musculoskeletal: Positive for back [...] as of this encounter Visit Diagnoses Diagnosis Lumbar sprain, sequela- Primary documented in this encounter Additional Health Concerns Assessment Noted Time PHQ-9 Depression Total Score: 0 07/28/19 25 2:51 PM EST documented as of this encounter Care Teams Track Moving Machine Operator Relationship Specialty Start Date End Date Miryam Gatica MD [address] [place] [phone] PCP - General Family Medicine 11/21/18 documented as of this encounter
--- NOTE | ~2025-03-27 | MM_ITS ---
EXAMINATION: DXA BONE DENSITY AXIAL HISTORY: T12 compression fracture, no history of trauma TECHNIQUE: [employer] Dual energy absorptiometry (DEXA) of the lumbar spine, total left hip, and femoral neck was performed. COMPARISON: There are no prior studies for comparison. FINDINGS: The bone mineral density of the lumbar spine is 0.960 g/cm2, corresponding to a T-score of -1.7, and a Z-score of -1.4. This is indicative of osteopenia. The bone mineral density of the left total hip is 0.915 g/cm2, corresponding to a T-score of -0.7, and a Z-score of -0.4. This is indicative of normal bone mineral density. The bone mineral density of the left femoral neck is 0.933 g/cm2, corresponding to a T-score of -0.8, and a Z-score of -0.1. This is indicative of normal bone mineral density. FRACTURE RISK: The FRAX index suggests a risk of major osteoporotic fracture of 5.3%, and of hip fracture 0.2%. MM/XR DEXA axial skeleton IMPRESSION: Based on bone mineral density, and according to World Health Organization (WHO) criteria, the diagnosis is consistent with osteopenia. Statistically, 68% of repeat scans fall within 1 SD (+/- 0.010 g/cm2 for AP spine L1-L4) and 1 SD (+/- 0.012 g/cm2 for femur total) FRAX is a trademark of the [employer] [place] for Metabolic Bone Disease, a World Health Organization (WHO) Collaborating Center. Electronically signed by: Cole Rome MD 03/27/2025 10:35 AM EDT
--- OUTSIDE RECORDS SUMMARY | 2025-03-27 10:58 | XMS_ITS | Encounter Summary ---
Author Organization [employer] Address [address] [facility] [address] [place] [address] Care Team Providers Care C Python Developer Name Role Phone Miryam Gatica MD Primary Care Provide r Encounter Details Date Type Department Care Team (Late st Contact Info) Description 02/11/2025 Results Follow-Up [facility] MED[facility]INE [address] [place], [place] [phone] Name, MD Luis [address] [place] [address] XR Lumbar Spine Complete 4+ Views Social [...] documented as of this encounter Care Teams C Python Developer Relationship Specialty Start Date End Date Miryam Gatica MD [address] [place] [address] PCP - General Family Medicine 11/21/18 documented as of this encounter
--- OUTSIDE RECORDS SUMMARY | 2025-03-27 10:58 | XMS_ITS | Encounter Summary ---
Author Organization [employer] Address [address] [facility] [address] [place] [address] Care Team Providers Care Basin Tender Name Role Phone Miryam Gatica MD Primary Care Provide r Encounter Details Date Type Department Care Team (Latest Contact Info) Description 03/24/2025 Travel Social History Tobacco Use Types Packs/Day [...] documented as of this encounter Care Teams Basin Tender Relationship Specialty Start Date End Date Miryam Gatica MD [address] [place] [address] PCP - General Family Medicine 11/21/18 documented as of this encounter
--- OUTSIDE RECORDS SUMMARY | 2025-03-27 10:58 | XMS_ITS | Encounter Summary ---
Author Organization [employer] Address [address] [place] [address] Care Team Providers Care Fur Blowing Machine Operator Name Role Phone Miryam Gatica MD Primary Care Provide r Encounter Details Date Type Department Care Team (Late st Contact Info) Description 06/28/2024 Orders Only [facility] MEDICINE [address] [place] [address] Provider, MD Mao Social History Tobacco Use [...] us Historical Provider HEALTH MAINTENANCE Final Result [facility] [address] [place] [address] documented in this encounter Visit Diagnoses Not on filedocumented in this encounter Additional Health Concerns Assessment Noted Time PHQ-9 Depression Total Score: 0 06/15/19 24 2:20 PM EST documented as of this encounter Care Teams Fur Blowing Machine Operator Relationship Specialty Start Date End Date Miryam Gatica MD [address] [place] [address] PCP - General Family Medicine 11/21/18 documented as of this encounter
--- OUTSIDE RECORDS SUMMARY | 2025-03-27 10:58 | XMS_ITS | Clinical Summary ---
Author Organization [employer] Address [address] [place] [address] Care Team Providers Care Mold Unloader Name Role Phone Miryam Gatica MD Primary [...] meal. 40 tablet 5 03/13/20 25 Active Problems Problem Noted Date Diagnosed [...] Encounters Date Type Department Care Team Description 03/24/2025 2:15 PM EDT Office Visit [facility] [address] [place] [address], [place] [address] Sharon Cam MD Lumbar sprain, sequela (Primary Dx) 03/24/2025 Travel 03/19/2025 10:00 AM EDT Office Visit [facility] [place] [address] Catalina Coffman MD Acute exacerbation of chronic low back pain (Primary Dx) 03/19/2025 Travel 03/05/2025 10:00 AM EDT Office Visit [facility] [place] [address] Catalina Coffman MD Acute exacerbation of chronic low back pain (Primary Dx) 03/05/2025 Travel 03/02/2025 Telephone [facility] [place] [address] Miryam Gatica MD Results 02/16/2025 10:15 AM EDT Office Visit [facility] [place] [address] Catalina Coffman MD Acute exacerbation of chronic low back pain (Primary Dx) 02/16/2025 Telephone [facility] [place] [address] Miryam Gatica MD telephone call 02/16/2025 Travel 02/11/2025 2:15 PM EDT Office Visit [facility] [place] [address] Luis Dow MD Acute exacerbation of chronic low back pain (Primary Dx); Osteoarthritis of spine with radiculopathy, lumbar region; Radicular pain of lower extremity; Compression fracture of T12 vertebra, initial encounter ([facility]) 02/11/2025 Results Follow-Up [facility] [place] [address] Luis Dow MD XR Lumbar Spine Complete 4+ Views 02/11/2025 Travel 02/09/2025 Telephone [facility] [place] [address] Miryam Gatica MD Nurse Triage from Last [...] the past 12 months, has t he [employer] gas, oil or water company threatened to [...] Sigmoidoscopy 1970 Hepatitis C Screening 1988 Hepatitis A Vaccines (1 of 2 - Risk 2-dose series) 1989 Hepatitis B Vaccines (1 of 3 - 19+ 3-dose series) 1989 Mammogram 2010 Pneumococcal Vaccine: 50+ Years (1 of 1 - PCV) 2020 COVID-19 Vaccine ( season) 2025 03/20/2023, 03/12/2022, 05/12/2021, Additional history exists Disability Screening 07/22/2025 07/22/2024 Alcohol/Substance Use Screening 07/28/2025 07/28/2024 Depression Screening 07/28/2025 07/28/2024, 07/28/19 25 SDOH Screening 07/28/2025 07/28/2024 Tobacco Screening 03/24/2026 03/24/2025 Cervical Cancer Screening 12/07/2026 HPV/Cotest 12/07/2026 Pap Smear 12/07/2026 12/07/2021 Colonoscopy 07/31/2032 07/31/2022 Colorectal Cancer Screening 07/31/2032 DTaP/Tdap/Td Vaccines (2 - Td or Tdap) 08/14/2033 08/15/2023 RSV Patients and Patients Aged 60 years or older (1 - 1-dose 75+ series) 2045 Zoster Vaccines Completed 10/16/2023, 08/05/2023 Influenza Vaccine Completed 02/16/2025, , 02/27/2022, Additional history exists HIB Vaccines Aged Out No longer eligi [...] Procedure Name Priority Date/Time Associated Diagnosis Comments BD DEXA AXIAL Routine 03/27/2025 10:16 AM EDT Compression fracture of T12 vertebra, initial encounter ([facility]) ([facility]) MR LUMBAR SPINE WO CONTRAST Routine 02/23/2025 7:21 AM EDT Acute exacerbation of chronic low back pain Osteoarthritis of spine with radiculopathy, lumbar region PTH, INTACT WITHOUT CALCIUM Routine 02/16/2025 10:09 AM EDT Compression fracture of T12 vertebra, initial encounter ([facility]) VITAMIN D,25-OH,TOTAL,IA Routine 02/16/2025 10:09 AM EDT Compression fracture of T12 vertebra, initial encounter ([facility]) BASIC METABOLIC PANEL Routine 02/16/2025 10:09 AM EDT Compression fracture of T12 vertebra, initial encounter ([facility]) XR LUMBAR SPINE COMPLETE 4+ VIEWS Routine 02/11/2025 4:00 PM EDT Acute exacerbation of chronic low back pain Radicular pain of lower extremity COLONOSCOPY Routine 07/31/2022 PAP/HPV Routine 12/07/2021 6:30 PM EDT from Last 3 Months or Most Recently Relevant to Health Maintenance Results * BD DEXA Axial (03/27/2025 10:16 AM EDT) Anatomical Region Laterality Modality Body Radiographic Na ging 03/27/2025 10:1 6 AM EDT Narrative 03/27/2025 10:38 AM EDT [facility] [address] [place] [address] Mammography Report Signed Patient: Tamara Pacheco MR#: [id number] : 1970 Acct:[id number] Age/Sex: 54 / F ADM Date: 03/27/25 Loc: .MAMMO Attending Dr: Luis Dow MD Ordering Physician: Luis Dow MD Results: Date of Service: 03/27/25 Follow Up: Procedure(s): XR DEXA axial skeleton Accession Number(s): [id number] cc: Luis Dow MD Reason For Exam: T12 compression fracture, no history of trauma EXAMINATION: DXA BONE DENSITY AXIAL HISTORY: T12 compression fracture, no history of trauma TECHNIQUE: [employer] Dual energy absorptiometry (DEXA) of the lumbar spine, total left hip, and femoral neck was performed. COMPARISON: There are no prior studies for comparison. FINDINGS: The bone mineral density of the lumbar spine is 0.960 g/cm2, corresponding to a T-score of -1.7, and a Z-score of -1.4. This is indicative of osteopenia. The bone mineral density of the left total hip is 0.915 g/cm2, corresponding to a T-score of -0.7, and a Z-score of -0.4. This is indicative of normal bone mineral density. The bone mineral density of the left femoral neck is 0.933 g/cm2, corresponding to a T-score of -0.8, and a Z-score of -0.1. This is indicative of normal bone mineral density. FRACTURE RISK: The FRAX index suggests a risk of major osteoporotic fracture of 5.3%, and of hip fracture 0.2%. MM/XR DEXA axial skeleton IMPRESSION: Based on bone mineral density, and according to World Health Organization (WHO) criteria, the diagnosis is consistent with osteopenia. Statistically, 68% of repeat scans fall within 1 SD (+/- 0.010 g/cm2 for AP spine L1-L4) and 1 SD (+/- 0.012 g/cm2 for femur total) FRAX is a trademark of the [employer] Metabolic Bone Disease, a World Health Organization (WHO) Collaborating Center. Electronically signed by: Cole Rome MD 03/27/2025 10:35 AM EDT RP Dictated By: Cole Rome MD Signed By: <Electronically signed by Cole Rome MD in OV> 03/27/25 1035 DD/ 1016 TD/TT: 03/27/25 1020 Gas Stove Servicer Helper: Procedure Note Donotuseinterpreter, Image - 03/27/2025 [facility] [address] [place] [address] Mammography Report Signed Patient: Tata Pacheco#: [id number] : 1970Acct:[id number] Age/Sex: 54 / FADM Date: 03/27/25 Loc: WONG.MAMMO Attending Dr: Luis Dow MD Ordering Physician: Luis Dowults: Date of Service: 03/27/25Follow Up: Procedure(s): XR DEXA axial skeleton Accession Number(s): [id number] cc: Luis Dow MD Reason For Exam: T12 compression fracture, no history of trauma EXAMINATION: DXA BONE DENSITY AXIAL HISTORY: T12 compression fracture, no history of trauma TECHNIQUE: [employer] Dual energy absorptiometry (DEXA) of the lumbar spine, total left hip, and femoral neck was performed. COMPARISON: There are no prior studies for comparison. FINDINGS: The bone mineral density of the lumbar spine is 0.960 g/cm2, corresponding to a T-score of -1.7, and a Z-score of -1.4. This is indicative of osteopenia. The bone mineral density of the left total hip is 0.915 g/cm2, corresponding to a T-score of -0.7, and a Z-score of -0.4. This is indicative of normal bone mineral density. The bone mineral density of the left femoral neck is 0.933 g/cm2, corresponding to a T-score of -0.8, and a Z-score of -0.1. This is indicative of normal bone mineral density. FRACTURE RISK: The FRAX index suggests a risk of major osteoporotic fracture of 5.3%, and of hip fracture 0.2%. MM/XR DEXA axial skeleton IMPRESSION: Based on bone mineral density, and according to World Health Organization (WHO) criteria, the diagnosis is consistent with osteopenia. Statistically, 68% of repeat scans fall within 1 SD (+/- 0.010 g/cm2 for AP spine L1-L4) and 1 SD (+/- 0.012 g/cm2 for femur total) FRAX is a trademark of the [employer] Metabolic Bone Disease, a World Health Organization (WHO) Collaborating Center. Electronically signed by: Cole Rome MD 03/27/2025 10:35 AM EDT Dictated By: Cole Rome MD Signed By: <Electronically signed by Cole Rome MD in OV> 03/27/25 1035 DD/ 1016 TD/TT: 03/27/25 1020 Gas Stove Servicer Helper: us Luis Dow MD IM DXA PROCEDURES Final Result * MR Lumbar Spine w/o Contrast (02/23/2025 7:21 AM EDT) Anatomical Region Laterality Modality Spine, L-spine Magnetic Resonan ce 02/23/2025 7:21 AM EDT Narrative 02/23/2025 9:14 AM EDT [place] [address] Magnetic Resonance Report Signed Patient: Tamara Pacheco MR#: [id number] : 1970 Acct:[id number] Age/Sex: 54 / F ADM Date: 02/23/25 Loc: HO.MRI Attending Dr: Luis Dow MD Ordering Physician: Name,Luis SAEZ Date of Service: 02/23/25 Procedure(s): MR lumbar spine wo con Accession Number(s): [id number] cc: Miryam Gatica MD; Name,Luis SAEZ Reason for Exam: years of lbp w/ radiation to lt buttock EXAMINATION: MR LUMBAR SPINE WITHOUT CONTRAST CLINICAL INFORMATION: Years of low back pain with radiation to left buttock. COMPARISON: No prior available. Radiographs of the lumbar spine 02/11/2025. TECHNIQUE: Multiplanar multisequence MR imaging of the lumbar spine was done without IV contrast. Examination was performed on a 1.5 Elvia Siemens magnet, utilizing standard sequences. FINDINGS: CORONAL ALIGNMENT: -There is a mild levoconvex scoliosis, apex at L3. SAGITTAL ALIGNMENT: -There is a normal lordosis. There is a 2 mm degenerative retrolisthesis of L1 on L2. -There is a 2 mm degenerative anterolisthesis of L4 on L5. LUMBOSACRAL JUNCTION: -Normal. There are 5 uep-ylb-duourci lumbar-type vertebral bodies. VERTEBRAL BODIES/BONE MARROW: -There is no compression deformity, or suspicious bone marrow lesion, or gross bone marrow edema identified. DISCS: -There is diffuse loss of disc signal, with loss of disc height predominantly at L5-S1. SPINAL CANAL: -No abnormal developmental findings. CONUS MEDULLARIS: -Terminates at L1. Morphology and signal is normal. INTRADURAL NERVE ROOTS: - Within normal limits. Axial Disc Space Images: T12-L1: No significant disc pathology. The right facet is mildly hypotrophic. No central canal or neural foraminal narrowing. L1-L2: No significant disc pathology. Mild degenerative facet changes. No central canal or neural foraminal narrowing. L2-L3: No significant disc pathology. Mild degenerative facet changes bilaterally. No central canal or neural foraminal narrowing. L3-L4: No significant disc pathology. Moderate hypertrophic degenerative facet changes bilaterally with mild posterior ligamentous infolding/thickening. There is no central canal narrowing. There is mild right greater than left neural foraminal narrowing. L4-L5: There is a minimal degenerative anterolisthesis. There is mild disc osteophytic bulging in the right neural foramen. There are moderate to severe hypertrophic degenerative facet changes bilaterally, with posterior ligamentous infolding/thickening. There is minimal central canal narrowing. There is no subarticular recess narrowing. There is mild right greater than left neural foraminal narrowing. L5-S1: There is left foraminal disc osteophytic bulging. There are moderate left greater than right hypertrophic degenerative facet changes. There is no central canal or subarticular recess stenosis. There is moderate left neural foraminal narrowing with contact of the exiting left L5 root, but no definite impingement. There is mild right neural foraminal narrowing. IMAGED SI JOINTS: -Mild to moderate degenerative arthrosis. PARAVERTEBRAL AND INCLUDED EXTRASPINAL SOFT TISSUES: -There is a small cyst in the left kidney. There is a small cyst in the right hepatic lobe. The aorta is normal in caliber.. MR/MR lumbar spine wo con IMPRESSION: 1. Mild to moderate lumbar spondylosis as described. There is no high-grade central canal narrowing, subarticular recess narrowing, or neural foraminal narrowing. 2. Degenerative facet changes are present mainly spanning L3-S1. There is moderate left neural foraminal narrowing at L5-S1. See above for details. Electronically signed by: Pacheco Adams MD 02/23/2025 09:12 AM EDT Dictated By: Pacheco Adams MD Signed By: <Electronically signed by Pacheco Adams MD in OV> 02/23/25 0912 DD/ 0721 TD/TT: 02/23/25 0757 Gas Stove Servicer Helper: Procedure Note Donotuseinterpreter, Image - 02/23/[address] [address] Magnetic Resonance Report Signed Patient: Tata Pacheco#: [id number] : 1970Acct:[id number] Age/Sex: 54 / FADM Date: 02/23/25 Loc: HO.MRI Attending Dr: Luis Dow MD Ordering Physician: Name,Luis SAEZ Date of Service: 02/23/25 Procedure(s): MR lumbar spine wo con Accession Number(s): [id number] cc: Miryam Gatica MD; Name,Luis SAEZ Reason for Exam: years of lbp w/ radiation to lt buttock EXAMINATION: MR LUMBAR SPINE WITHOUT CONTRAST CLINICAL INFORMATION: Years of low back pain with radiation to left buttock. COMPARISON: No prior available. Radiographs of the lumbar spine 02/11/2025. TECHNIQUE: Multiplanar multisequence MR imaging of the lumbar spine was done without IV contrast. Examination was performed on a 1.5 Elvia Siemens magnet, utilizing standard sequences. FINDINGS: CORONAL ALIGNMENT: -There is a mild levoconvex scoliosis, apex at L3. SAGITTAL ALIGNMENT: -There is a normal lordosis. There is a 2 mm degenerative retrolisthesis of L1 on L2. -There is a 2 mm degenerative anterolisthesis of L4 on L5. LUMBOSACRAL JUNCTION: -Normal. There are 5 yfb-mzq-gigbzym lumbar-type vertebral bodies. VERTEBRAL BODIES/BONE MARROW: -There is no compression deformity, or suspicious bone marrow lesion, or gross bone marrow edema identified. DISCS: -There is diffuse loss of disc signal, with loss of disc height predominantly at L5-S1. SPINAL CANAL: -No abnormal developmental findings. CONUS MEDULLARIS: -Terminates at L1. Morphology and signal is normal. INTRADURAL NERVE ROOTS: - Within normal limits. Axial Disc Space Images: T12-L1: No significant disc pathology. The right facet is mildly hypotrophic. No central canal or neural foraminal narrowing. L1-L2: No significant disc pathology. Mild degenerative facet changes. No central canal or neural foraminal narrowing. L2-L3: No significant disc pathology. Mild degenerative facet changes bilaterally. No central canal or neural foraminal narrowing. L3-L4: No significant disc pathology. Moderate hypertrophic degenerative facet changes bilaterally with mild posterior ligamentous infolding/thickening. There is no central canal narrowing. There is mild right greater than left neural foraminal narrowing. L4-L5: There is a minimal degenerative anterolisthesis. There is mild disc osteophytic bulging in the right neural foramen. There are moderate to severe hypertrophic degenerative facet changes bilaterally, with posterior ligamentous infolding/thickening. There is minimal central canal narrowing. There is no subarticular recess narrowing. There is mild right greater than left neural foraminal narrowing. L5-S1: There is left foraminal disc osteophytic bulging. There are moderate left greater than right hypertrophic degenerative facet changes. There is no central canal or subarticular recess stenosis. There is moderate left neural foraminal narrowing with contact of the exiting left L5 root, but no definite impingement. There is mild right neural foraminal narrowing. IMAGED SI JOINTS: -Mild to moderate degenerative arthrosis. PARAVERTEBRAL AND INCLUDED EXTRASPINAL SOFT TISSUES: -There is a small cyst in the left kidney. There is a small cyst in the right hepatic lobe. The aorta is normal in caliber.. MR/MR lumbar spine wo con IMPRESSION: 1. Mild to moderate lumbar spondylosis as described. There is no high-grade central canal narrowing, subarticular recess narrowing, or neural foraminal narrowing. 2. Degenerative facet changes are present mainly spanning L3-S1. There is moderate left neural foraminal narrowing at L5-S1. See above for details. Electronically signed by: Pacheco Adams MD 02/23/2025 09:12 AM EDT Dictated By: Pacheco Adams MD Signed By: <Electronically signed by Pacheco Adams MD in OV> 02/23/25 0912 DD/ 0721 TD/TT: 02/23/25 0757 Gas Stove Servicer Helper: Luis Dow MD [facility] MRI PROCEDURES Edited Result - Final * Vitamin D, 25-Hydroxy, Total, Immunoassay (02/16/2025 10:09 AM EDT) Vitamin D 25-OH Total 62.8 >30 ng/mL [facility] Comment: Health Based Reference Values*< 20 ng/mL Poobzzmyn28-39 ng/mL Insufficient> 30 ng/mL Sufficient*Madhuri BARBA. N [...] ORDERABLES Final Resul t Performing Organization Address City/[facility]/ZIP Co de Phone Number [facility] [address] [place] [phone] * PTH, Intact Without Calcium (02/16/2025 10:09 AM EDT) Parathyroid Hormone, Intact 43.4 8.7 - 77.1 pg/mL [facility] Blood Venous blood specimen / Unknown 02/16/2025 10:09 AM EDT 02/16/2025 11:12 AM EDT us Luis Dow MD LAB BLOOD ORDERABLES Final Resul t Performing Organization Address [facility]/ZIP Co de Phone Number [facility] [address] [place] [phone] * Basic Metabolic Panel (02/16/2025 10:09 AM EDT) Sodium 141 135 - 145 mmol/L [facility] Potassium 4.2 3.3 - 5.1 mmol/L [facility] Chloride 105 96 - 108 mmol/L [facility] Carbon Dioxide 28 22 - 29 mmol/L [facility] Anion Gap 12 12 - 20 [facility] Urea Nitrogen (BUN) 12 9 - 16 mg/dL [facility] Creatinine, Serum 0.76 0.5 - 1.4 mg/dL [facility] Estimated Glomerular Filt Rate >60 [facility] Comment:Chronic Kidney Disea se: Estimated GFR < 60 mL/min/1.29e3Cvnabu Kidney Disease: Estimated GFR < 15 mL/min/1.73m2 Glucose 104 60 - 115 mg/dL [facility] Calcium 9.2 8.4 - 10.2 mg/dL [facility] Blood Venous blood specimen / Unknown 02/16/2025 10:09 AM EDT 02/16/2025 11:12 AM EDT Luis Dow MD LAB BLOOD ORDERABLES Final Resul t Performing Organization Address City/State/[facility] Co de Phone Number [facility] [address] [place] [phone] * XR Lumbar Spine Complete 4+ Views (02/11/2025 4:00 PM EDT) Anatomical Region Laterality Modality Spine, L-spine Radiographic Na ging 02/11/2025 4:00 PM EDT Narrative 02/11/2025 4:30 PM EDT [address] [address] XRay Report Signed Patient: Tamara Pacheco MR#: [id number] : 1970 Acct:[id number] Age/Sex: 54 / F ADM Date: 02/11/25 Loc: HO.HHCX Attending Dr: Luis Dow MD Ordering Physician: Luis Dow MD Date of Service: 02/11/25 Procedure(s): XR lumbar spine 4V min Accession Number(s): [id number] cc: Miryam Gatica MD; Name,Luis SAEZ Reason [...] 02/11/25 1627 DD/ 1600 TD/TT: 02/11/25 1602 Gas Stove Servicer Helper: Procedure Note Donotuseinterpreter, Image - 02/11/2025 [place] [address] XRay Report Signed Patient: Tata Pacheco#: [id number] : 1970Acct:[id number] Age/Sex: 54 / FADM Date: 02/11/25 Loc: HO.HHCX Attending Dr: Luis Dow MD Ordering Physician: Name,Luis SAEZ Date of Service: 02/11/25 Procedure(s): XR lumbar spine 4V min Accession Number(s): [id number] cc: Miryam Gatica MD; Name,Luis SAEZ Reason [...] 02/11/25 1627 DD/ 1600 TD/TT: 02/11/25 1602 Gas Stove Servicer Helper: Luis Dow MD IMG XR PROCEDURES Final Result * Hm Colonoscopy (07/31/2022) Colonoscopy Normal Normal Narrative Lora Russell - 07/31/2022 Repeat colonoscopy in 10 years Historical Provider HEALTH MAINTENANCE Final Result * PAP/HPV (12/07/2021 6:30 PM EDT) Historical Provider HEALTH MAINTENANCE Final Result [facility] [address] [place] [phone] from Last 3 Months or Most Recently Relevant to Health Maintenance Insurance [facility] C3 Care Teams Mold Unloader Relationship Specialty Start Date End Date Miryam Gatica MD [address] [place] [phone] PCP - General Family Medicine 11/21/18
--- OUTSIDE RECORDS SUMMARY | 2025-03-27 10:58 | XMS_ITS | Encounter Summary ---
Author Organization [employer] Address [address] [place] [address] [address] [place] [address] Care Team Providers Care Vp Research Name Role Phone Miryam Gatica MD Primary Care Provide r Reason for Visit * Reason Onset Date Comments Appointment Request 05/09/2023 Encounter Details Date Type Department Care Team ([facility] st Contact Info) Description 05/09/2023 Telephone [facility] [address] [place], [place] [phone] Miryam Gatica MD [address] [place] [address] Appointment Request Social History Tobacco Use Types [...] Appt with Provider. Please contact pt at [phone] documented in this encounter Plan of Treatment Not on file documented as of this encounter Visit Diagnoses Not on filedocumented in this encounter Care Teams Vp Research Relationship Specialty Start Date End Date Miryam Gatica MD [address] [place] [address] PCP - General Family Medicine 11/21/18 documented as of this encounter
== END 2025-03-27 09:46 | disposition home or self-care (01) ==
LOC: HO.MAMMO 09:45
PROVIDERS: PCP Internal Medicine Geriatric Medicine; Visit Provider Internal Medicine Geriatric Medicine
DX: Z13.820 Encounter for screening for osteoporosis (principal); S22.080A Wedge compression fracture of T11-T12 vertebra, initial encounter for closed fracture; M85.88 Other specified disorders of bone density and structure, other site
CPT/HCPCS: 77080

== ENCOUNTER → 2025-03-27 10:00 | Outpatient (BNV) | payer MEDICAID, SELFPAY | PROVIDERS: PCP Internal Medicine Geriatric Medicine; Visit Provider Radiology Diagnostic Radiology | DX: E28.39 Other primary ovarian failure (principal) | CPT/HCPCS: 77080 ==

== ENCOUNTER → 2025-03-31 18:23 | Outpatient (BNV) | payer MEDICAID, SELFPAY | PROVIDERS: PCP Internal Medicine Geriatric Medicine; Visit Provider Radiology Diagnostic Radiology | DX: M47.814 Spondylosis without myelopathy or radiculopathy, thoracic region (principal); K76.89 Other specified diseases of liver | CPT/HCPCS: 72146 ==

== ENCOUNTER 2025-03-31 18:24 | Outpatient (REF) | payer MEDICAID, SELFPAY ==
--- NOTE | ~2025-03-31 | MR_ITS ---
EXAMINATION: MR THORACIC SPINE WITHOUT CONTRAST CLINICAL INFORMATION: T12 compression fracture. COMPARISON: None available. TECHNIQUE: MRI of the thoracic spine was obtained using routine sequences without contrast. FINDINGS: No bone marrow STIR signal abnormality. Multilevel marginal osteophyte formation and disc desiccation throughout the axial skeleton. 1 mm anterolisthesis C7 with respect to T1. Thoracic spinal cord caliber and signal is normal. Conus medullaris ends at pedicle of L1 with normal signal. 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 Bone marrow inhomogeneity. T1-2: No disc herniation. T2-3: Left subarticular disc protrusion. No cord compression. T3-4: Left subarticular disc protrusion. No cord compression. T4-5: No disc herniation. T5 -6: Left subarticular disc protrusion. No cord compression. T6-7: No disc herniation. T7-8: Broad-based disc bulging. No cord compression. T8-9: Right subarticular disc herniation. Ventral indentation to the thecal sac. No cord compression. T9-10: Broad-based disc bulging. No cord compression. T10-11: Broad-based disc bulging. No cord compression. T11-12: Right subarticular broad-based disc herniation. Ventral indentation to the thecal sac. No cord compression. T12-L1: Broad-based disc bulging. Facet joint hypertrophy. No cord compression. No prevertebral compartment hematoma, mass or fluid collection. There is an 11 mm hyperintense T2 cystic lesion, right hepatic lobe. Descending thoracic aorta and suprarenal abdominal aorta diameter is normal. MR/MR thoracic spine wo con IMPRESSION: No acute fracture. Multilevel spondylosis without central spinal canal stenosis or cord compression. No cord edema and or myelopathy. 11 mm cystic lesion, right hepatic lobe. Electronically signed by: Joe Crystal MD 04/01/2025 07:14 AM EDT
--- OUTSIDE RECORDS SUMMARY | 2025-03-31 20:25 | XMS_ITS | Encounter Summary ---
Author Organization [employer] Address [address] [place] [address] 7 [place] [address] Care Team Providers Care Director Of Entertainment Name Role Phone Miryam Gatica MD Primary Care Provide r Reason for Visit * Reason Onset Date Comments Appointment Request 05/09/2023 Encounter Details Date Type Department Care Team ([facility] st Contact Info) Description 05/09/2023 Telephone [facility] MEDICINE [address] [place], [place] [phone] Miryam Gatica MD [address] [place] [address] Appointment Request Social History Tobacco Use Types [...] Appt with Provider. Please contact pt at [phone] documented in this encounter Plan of Treatment Not on file documented as of this encounter Visit Diagnoses Not on filedocumented in this encounter Care Teams Director Of Entertainment Relationship Specialty Start Date End Date Miryam Gatica MD [address] [place] [address] PCP - General Family Medicine 11/21/18 documented as of this encounter
--- OUTSIDE RECORDS SUMMARY | 2025-03-31 20:25 | XMS_ITS | Encounter Summary ---
Author Organization [employer] Address [address] [facility] 7t [place] [address] Care Team Providers Care Double Needle Stitcher Name Role Phone Miryam Gatica MD Primary Care Provide r Encounter Details Date Type Department Care Team (Late st Contact Info) Description 02/11/2025 Results Follow-Up [facility] MEDICINE [address] [place], [place] [phone] Name, MD Luis [address] [place] [address] XR Lumbar Spine Complete 4+ Views Social [...] documented as of this encounter Care Teams Double Needle Stitcher Relationship Specialty Start Date End Date Miryam Gatica MD [address] [place] [address] PCP - General Family Medicine 11/21/18 documented as of this encounter
--- OUTSIDE RECORDS SUMMARY | 2025-03-31 20:25 | XMS_ITS | Encounter Summary ---
Author Organization [email or web address] Address [address] 7t [place] [address] Care Team Providers Care Engineering Job Titles Name Role Phone Miryam Gatica MD Primary Care Provide r Encounter Details Date Type Department Care Team (Late st Contact Info) Description 06/28/2024 Orders Only [facility] MEDICINE [address] [place] [address] Provider, MD Mao Social History Tobacco Use [...] us Historical Provider HEALTH MAINTENANCE Final Result [facility] [address] [place] [address] documented in this encounter Visit Diagnoses Not on filedocumented in this encounter Additional Health Concerns Assessment Noted Time PHQ-9 Depression Total Score: 0 06/15/19 24 2:20 PM EST documented as of this encounter Care Teams Engineering Job Titles Relationship Specialty Start Date End Date Miryam Gatica MD [address] [place] [address] PCP - General Family Medicine 11/21/18 documented as of this encounter
--- OUTSIDE RECORDS SUMMARY | 2025-03-31 20:25 | XMS_ITS | Clinical Summary ---
Author Organization [employer] Address [address] [facility] 7t [place] [address] Care Team Providers Care Sample Cutter Name Role Phone Miryam Gatica MD [...] Description 03/24/2025 2:15 PM EDT Office Visit [facility] [address] [place] [address], [place] [address] Sharon Cam MD Lumbar sprain, sequela (Primary Dx) 03/24/2025 Travel 03/19/2025 10:00 AM EDT Office [place] [address] Catalina Coffman MD Acute exacerbation of chronic low back pain (Primary Dx) 03/19/2025 Travel 03/05/2025 10:00 AM EDT Office Visit [facility] [place] [address] Catalina Coffman MD Acute exacerbation of chronic low back pain (Primary Dx) 03/05/2025 Travel 03/02/2025 Telephone [facility] [place] [address] Miryam Gatica MD Results 02/16/2025 10:15 AM EDT Office Visit [facility] [place] [address] Catalina Coffman MD Acute exacerbation of chronic low back pain (Primary Dx) 02/16/2025 Telephone [facility] [place] [address] Miryam Gatica MD telephone call 02/16/2025 Travel 02/11/2025 2:15 PM EDT Office Visit [facility] [place] [address] Luis Dow MD Acute exacerbation of chronic low back pain (Primary Dx); Osteoarthritis of spine with radiculopathy, lumbar region; Radicular pain of lower extremity; Compression fracture of T12 vertebra, initial encounter ([facility]) 02/11/2025 Results Follow-Up [facility] [place] [address] Luis Dow MD XR Lumbar Spine Complete 4+ Views 02/11/2025 Travel 02/09/2025 Telephone [facility] [place] [address] Miryam Gatica MD Nurse Triage from Last [...] the past 12 months, has t he eFolder, gas, oil or water company threatened to [...] Compression fracture of T12 vertebra, initial encounter ([facility]) ([facility]) MR LUMBAR SPINE WO CONTRAST Routine 02/23/2025 7:21 AM EDT Acute exacerbation of chronic low back pain Osteoarthritis of spine with radiculopathy, lumbar region PTH, INTACT WITHOUT CALCIUM Routine 02/16/2025 10:09 AM EDT Compression fracture of T12 vertebra, initial encounter ([facility]) VITAMIN D,25-OH,TOTAL,IA Routine 02/16/2025 10:09 AM EDT Compression fracture of T12 vertebra, initial encounter ([facility]) BASIC METABOLIC PANEL Routine 02/16/2025 10:09 AM EDT Compression fracture of T12 vertebra, initial encounter ([facility]) XR LUMBAR SPINE COMPLETE 4+ VIEWS Routine [...] Narrative 03/27/2025 10:38 AM EDT [facility] [address] [place] [address] Mammography Report Signed Patient: Tamara Pacheco MR#: [id number] : 1970 Acct:[id number] Age/Sex: 54 / F ADM Date: 03/27/25 Loc: .MAMMO Attending Dr: Luis Dow MD Ordering Physician: Luis Dow MD Results: Date of Service: 03/27/25 Follow Up: Procedure(s): XR DEXA axial skeleton Accession Number(s): [id number] cc: Luis Dow MD Reason For Exam: T12 compression fracture, no history of trauma EXAMINATION: DXA BONE DENSITY AXIAL HISTORY: T12 compression fracture, no history of trauma TECHNIQUE: [employer] Dual energy absorptiometry (DEXA) of the lumbar [...] is a trademark of the [employer] [place] for Metabolic Bone Disease, a World Health Organization (WHO) Collaborating Center. Electronically signed by: Cole Rome MD 03/27/2025 10:35 AM EDT RP Dictated By: Cole Rome MD Signed By: <Electronically signed by Cole Rome MD in OV> 03/27/25 1035 DD/ 1016 TD/TT: 03/27/25 1020 Mammography Technologist: Procedure Note Donotuseinterpreter, Image - 03/27/2025 [facility] [address] [place] [address] Mammography Report Signed Patient: Tata Pacheco#: [id number] : 1970Acct:[id number] Age/Sex: 54 / FADM Date: 03/27/25 Loc: WONG.MAMMO Attending Dr: Luis Dow MD Ordering Physician: Luis Dowults: Date of Service: 03/27/25Follow Up: Procedure(s): XR DEXA axial skeleton Accession Number(s): [id number] cc: Luis Dow MD Reason For Exam: T12 compression fracture, no history of trauma EXAMINATION: DXA BONE DENSITY AXIAL HISTORY: T12 compression fracture, no history of trauma TECHNIQUE: [employer] Dual energy absorptiometry (DEXA) of the lumbar [...] is a trademark of the [employer] [place] for Metabolic Bone Disease, a World Health Organization (WHO) Collaborating Center. Electronically signed by: Cole Rome MD 03/27/2025 10:35 AM EDT Dictated By: Cole Rome MD Signed By: <Electronically signed by Cole Rome MD in OV> 03/27/25 1035 DD/ 1016 TD/TT: 03/27/25 1020 Mammography Technologist: us Luis Dow MD IM DXA PROCEDURES Final Result * MR Lumbar Spine w/o Contrast (02/23/2025 7:21 AM EDT) Anatomical Region Laterality Modality Spine, L-spine Magnetic Resonan ce 02/23/2025 7:21 AM EDT Narrative 02/23/2025 9:14 AM EDT [place] [address] Magnetic Resonance Report Signed Patient: Tamara Pacheco MR#: [id number] : 1970 Acct:[id number] Age/Sex: 54 / F ADM Date: 02/23/25 Loc: HO.MRI Attending Dr: Luis Dow MD Ordering Physician: Name,Luis SAEZ Date of Service: 02/23/25 Procedure(s): MR lumbar spine wo con Accession Number(s): [id number] cc: Miryam Gatica MD; Name,Luis SAEZ Reason [...] L5. LUMBOSACRAL JUNCTION: -Normal. There are 5 ijq-wjc-bvziczi lumbar-type vertebral bodies. VERTEBRAL BODIES/BONE MARROW: -There [...] 02/23/25 0912 DD/ 0721 TD/TT: 02/23/25 0757 Mammography Technologist: Procedure Note Donotuseinterpreter, Image - 02/23/[address] [address] Magnetic Resonance Report Signed Patient: Tata Pacheco#: [id number] : 1970Acct:[id number] Age/Sex: 54 / FADM Date: 02/23/25 Loc: HO.MRI Attending Dr: Luis Dow MD Ordering Physician: Name,Luis SAEZ Date of Service: 02/23/25 Procedure(s): MR lumbar spine wo con Accession Number(s): [id number] cc: Miryam Gatica MD; Name,Luis SAEZ Reason [...] L5. LUMBOSACRAL JUNCTION: -Normal. There are 5 mlk-htc-xyyddbh lumbar-type vertebral bodies. VERTEBRAL BODIES/BONE MARROW: -There [...] 02/23/25 0912 DD/ 0721 TD/TT: 02/23/25 0757 Mammography Technologist: Luis Dow MD [facility] MRI PROCEDURES Edited Result - Final * Vitamin D, 25-Hydroxy, Total, Immunoassay (02/16/2025 10:09 AM EDT) Vitamin D 25-OH Total 62.8 >30 ng/mL [facility] Comment: Health Based Reference Values*< 20 ng/mL Bauonhpgq68-65 ng/mL Insufficient> 30 ng/mL Sufficient*Madhuri BARBA. N [...] ORDERABLES Final Resul t Performing Organization Address City/[facility]/ZIP Co de Phone Number [facility] [address] [place] [phone] * PTH, Intact Without Calcium (02/16/2025 10:09 AM EDT) Parathyroid Hormone, Intact 43.4 8.7 - 77.1 pg/mL [facility] Blood Venous blood specimen / Unknown 02/16/2025 10:09 AM EDT 02/16/2025 11:12 AM EDT us Luis Dow MD LAB BLOOD ORDERABLES Final Resul t Performing Organization Address [facility]/ZIP Co de Phone Number [facility] [address] [place] [phone] * Basic Metabolic Panel (02/16/2025 10:09 AM EDT) Sodium 141 135 - 145 mmol/L [facility] Potassium 4.2 3.3 - 5.1 mmol/L [facility] Chloride 105 96 - 108 mmol/L [facility] Carbon Dioxide 28 22 - 29 mmol/L [facility] Anion Gap 12 12 - 20 [facility] Urea Nitrogen (BUN) 12 9 - 16 mg/dL [facility] Creatinine, Serum 0.76 0.5 - 1.4 mg/dL [facility] Estimated Glomerular Filt Rate >60 [facility] Comment:Chronic Kidney Disea se: Estimated GFR < 60 mL/min/1.95i2Vqpyfj Kidney Disease: Estimated GFR < 15 mL/min/1.73m2 Glucose 104 60 - 115 mg/dL [facility] Calcium 9.2 8.4 - 10.2 mg/dL [facility] Blood Venous blood specimen / Unknown 02/16/2025 10:09 AM EDT 02/16/2025 11:12 AM EDT Luis Dow MD LAB BLOOD ORDERABLES Final Resul t Performing Organization Address City/State/[facility] Co de Phone Number [facility] [address] [place] [phone] * XR Lumbar Spine Complete 4+ Views (02/11/2025 4:00 PM EDT) Anatomical Region Laterality Modality Spine, L-spine Radiographic Na ging 02/11/2025 4:00 PM EDT Narrative 02/11/2025 4:30 PM EDT [address] [address] XRay Report Signed Patient: Tamara Pacheco MR#: [id number] : 1970 Acct:[id number] Age/Sex: 54 / F ADM Date: 02/11/25 Loc: HO.HHCX Attending Dr: Luis Dow MD Ordering Physician: Luis Dow MD Date of Service: 02/11/25 Procedure(s): XR lumbar spine 4V min Accession Number(s): [id number] cc: Miryam Gatica MD; Name,Luis SAEZ Reason [...] 02/11/25 1627 DD/ 1600 TD/TT: 02/11/25 1602 Mammography Technologist: Procedure Note Donotuseinterpreter, Image - 02/11/2025 [place] [address] XRay Report Signed Patient: Tata Pacheco#: [id number] : 1970Acct:[id number] Age/Sex: 54 / FADM Date: 02/11/25 Loc: HO.HHCX Attending Dr: Luis Dow MD Ordering Physician: Name,Luis SAEZ Date of Service: 02/11/25 Procedure(s): XR lumbar spine 4V min Accession Number(s): [id number] cc: Miryam Gatica MD; Name,Luis SAEZ Reason [...] 02/11/25 1627 DD/ 1600 TD/TT: 02/11/25 1602 Mammography Technologist: Luis Dow MD IMG XR PROCEDURES Final Result * Hm Colonoscopy (07/31/2022) Colonoscopy Normal Normal Narrative [facility] [place] - 07/31/2022 Repeat colonoscopy in 10 years Historical Provider HEALTH MAINTENANCE Final Result * PAP/HPV (12/07/2021 6:30 PM EDT) Historical Provider HEALTH MAINTENANCE Final Result [facility] [address] [place] [address] from Last 3 Months or Most Recently Relevant to Health Maintenance Insurance [facility] C3 Care Teams Sample Cutter Relationship Specialty Start Date End Date Miryam Gatica MD [address] [place] [phone] PCP - General Family Medicine 11/21/18
== END 2025-03-31 18:25 | disposition home or self-care (01) ==
LOC: HO.MRI 18:24
PROVIDERS: PCP Internal Medicine Geriatric Medicine; Visit Provider Internal Medicine Geriatric Medicine
DX: S22.060A Wedge compression fracture of T7-T8 vertebra, initial encounter for closed fracture (principal)
CPT/HCPCS: 72146

== ENCOUNTER 2025-05-08 08:35 | Outpatient (REF) | payer MEDICAID, SELFPAY ==
--- NOTE | ~2025-05-08 | US_ITS ---
CLINICAL HISTORY: Kidney and liver cyst seen incidentally on MRI of the lumbar spine US abdomen complete with duplex and color Doppler Comparison: MR - MR THORACIC SPINE WO CON - 03/31/25 18:42 EDT Findings: The visualized pancreas, aorta, and inferior vena cava are unremarkable. Liver normal size and echotexture. Right lobe 12.7 cm length. Hepatic cyst right lobe measuring 11 x 8 x 10 mm Common duct 3.0 mm diameter. Physiologic distention of the gallbladder. No gallstones or sludge. No gallbladder wall thickening. No pericholecystic fluid. No sonographic Pugh sign. Main portal vein antegrade. Right kidney normal size, 10.1 cm in length. Normal cortical width and echotexture. No nephrolithiasis. No hydronephrosis.No renal masses or cysts. Left kidney normal, 10.1 cm in length. Normal cortical width and echotexture. No nephrolithiasis. No hydronephrosis.Benign renal cortical cyst lower pole measuring 6 x 4 x 6 mm. Spleen measures 10.0 cm. No splenic masses. No ascites. No lymphadenopathy. Impression: 1. Incidental hepatic and left renal cysts This document has been electronically signed by: Shamir Lobato MD on 05/08/2025 09:49:35
== END 2025-05-08 08:36 | disposition home or self-care (01) ==
LOC: HO.US 08:35
PROVIDERS: PCP Internal Medicine Geriatric Medicine; Visit Provider Internal Medicine Geriatric Medicine
DX: N28.1 Cyst of kidney, acquired (principal); K76.89 Other specified diseases of liver
CPT/HCPCS: 76700

== ENCOUNTER → 2025-05-08 08:39 | Outpatient (BNV) | payer MEDICAID, SELFPAY | PROVIDERS: PCP Internal Medicine Geriatric Medicine; Visit Provider Radiology Diagnostic Radiology | DX: N28.1 Cyst of kidney, acquired (principal); K76.89 Other specified diseases of liver | CPT/HCPCS: 76700 ==